=== PATIENT | female | born 1970 | race Asian ===

== ENCOUNTER → 2019-04-23 | Outpatient (CLI) | payer OTHER ==
[~2019-04-23] MED LIST: IRON PO; PRAVASTATIN SOD20 MG PO; VIREAD300 MG PO
--- NOTE | 2019-04-23 12:13 | Diagnostic Imaging Report ---
EXAM: Right upper quadrant abdominal ultrasound INDICATION: Personal history of hepatitis B, abdominal pain COMPARISON: None. TECHNIQUE: Transverse and longitudinal images of the right upper quadrant abdomen were obtained FINDINGS: Liver: Size: 11.6 cm in the right midclavicular line, normal Appearance: Increased echogenicity, smooth contour Mass: No focal masses Gallbladder: No gallbladder distension, pericholecystic fluid, wall thickening, stone, or reported sonographic Triplett's sign. Gallbladder wall measures 0.2 cm. Bile Ducts: Intrahepatic Ducts: No dilatation Extrahepatic Ducts: Common bile duct measures 0.2cm, no dilatation Pancreas: Visualized portions of the pancreatic head, neck and proximal body are normal. Kidney: The right kidney measures 9.3 cm without evidence of hydronephrosis or stone. Vessels: Aorta: Visualized portions are normal Inferior Vena Cava: Visualized portions are normal Main Portal Vein: 1.0 cm, normal size with hepatopetal flow. Free Fluid: No ascites or pleural effusion IMPRESSION: Hepatic steatosis. No focal liver mass. Signed by: Bairon Sanchez MD on 04/23/2019 12:09 PM
== END ==
LOC: US 08:14
PROVIDERS: ATTEND Internal Medicine Gastroenterology
DX: Z86.19 Personal history of other infectious and parasitic diseases (principal)
CPT/HCPCS: 76705

== ENCOUNTER → 2019-05-28 | Day surgery (SDC) | payer OTHER ==
[2019-05-24 11:35] LABS: BASOPHILS % 0.2 % (0.0-1.0); EOSINOPHILS # (AUTO) 0.7 (0.0-0.4); EOSINOPHILS % 7.9 % (0.0-6.0); HEMATOCRIT 40.1 % (34.2-44.1); HEMOGLOBIN 12.8 g/dL (12.0-16.0); LYMPHOCYTES # (AUTO) 2.1 (1.0-3.2); MEAN CORPUSCULAR HEMOGLOBIN 29.2 pg (28-32); MEAN CORPUSCULAR HGB CONC 31.9 g/dL (31-35); MEAN CORPUSCULAR VOLUME 91.3 fL (81-99); MONOCYTES # (AUTO) 0.8 (0.2-0.8); MONOCYTES % 8.7 % (4.4-11.3); NEUTROPHILS # (AUTO) 5.2 (2.1-6.9); PLATELET COUNT 228 x10e3/uL (140-360); RED BLOOD COUNT 4.39 x10e6/uL (3.6-5.1); RED CELL DISTRIBUTION WIDTH 19.5 % (11.7-14.4)
[2019-05-24 11:45] LABS: INR 0.85; PROTHROMBIN TIME 12.1 seconds (11.9-14.5)
[2019-05-24 11:46] LABS: PARTIAL THROMBOPLASTIN TIME 31.5 seconds (23.8-35.5)
[2019-05-24 11:56] LABS: ALANINE AMINOTRANSFERASE 25 IU/L (0-55); ALBUMIN/GLOBULIN RATIO 1.3 (0.8-2.0); ALKALINE PHOSPHATASE 79 IU/L (40-150); ANION GAP 11.7 mmol/L (8-16); BLOOD UREA NITROGEN 13 mg/dL (7-26); BUN/CREATININE RATIO 22 (6-25); CALCIUM 9.4 mg/dL (8.4-10.2); CARBON DIOXIDE 27 mmol/L (22-29); CHLORIDE 102 mmol/L (98-107); CREATININE, SERUM 0.58 mg/dL (0.57-1.11); EST GLOMERULAR FILTRATION RATE > 60 ML/MIN (60-); GLUCOSE 86 mg/dL (74-118); POTASSIUM 4.7 mmol/L (3.5-5.1); SODIUM 136 mmol/L (136-145)
[~2019-05-28] MED LIST changes: +FENTANYL CITRATE/PF 100MCG/2 ML INJ ONE; +GLUCAGON FOR INJ 1 MG VIAL ONE; +MIDAZOLAM HCL 2 MG/2 ML VIAL ONE; +PROPOFOL IV EMULSION 10 MG/ML 50 ML VIAL ONE
--- OUTSIDE RECORDS SUMMARY | 2019-05-28 05:52 | XMS REPORT | Continuity of Care Document ---
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 [facility] Urinary frequency Active Diagnosis 04/07/2017 Gireese Dianajeovanny Pedro Vitamin D deficiency Active Diagnosis 03/19/2019 Melisa Pedro Body mass index (BMI) of 21.0 to 21.9 in adult Active Diagnosis 03/19/2019 Gireese Goodmanang Dermatitis Active Diagnosis 04/07/2017 Gireese Goodmanang Osteoarthritis of ankle and foot Active Problem 03/19/2019 Gireese Goodmanang Pure hypercholesterolemia Active Diagnosis 03/19/2019 Gireese Pedro Chronic hepatitis B Active Diagnosis 03/19/2019 Gireese Pedro Anemia due to chronic blood loss Active Diagnosis 03/19/2019 Melisa Pedro TMJ arthritis Active Diagnosis 03/24/2017 Gireese Pedro Gingivitis Active Problem 03/19/2019 Gireese Pedro BMI 20.0-20.9, adult Active Diagnosis 11/12/2017 Gireese Pedro Allergic dermatitis Active Diagnosis 04/13/2018 Gireese Pedro Breast cancer screening Active Diagnosis 07/15/2018 Melisa Pedro Cervical cancer screening Active Diagnosis 09/16/2018 Melisa Pedro Encounter for general adult medical examination with abnormal findings Active Diagnosis 05/19/2018 Melisa Pedro Acute cystitis without hematuria Active Diagnosis 01/31/2019 Melisa Pedro BMI 21.0-21.9, adult Active Diagnosis 01/31/2019 Melisa Pedro Body mass index (BMI) 21.0-21.9, adult Active Diagnosis 04/13/2018 Melisa Pedro Hand pain, right Active Diagnosis 04/13/2018 Melisa Pedro Acne vulgaris Active Diagnosis 04/13/2018 Melisa Pedro Urinary tract infection without hematuria, site unspecified Active Diagnosis 04/01/2018 Melisa Pedro Muscle spasm Active Diagnosis 03/19/2019 Melisa Pedro Infected finger Active Diagnosis 11/12/2017 Melisa Pedro Hand numbness Active Diagnosis 04/13/2018 Melisa Pedro Cough in adult Active Diagnosis 09/16/2018 Melisa Pedro Hepatitis B Active Problem 09/03/2015 Melisa Pdero Encounter for general adult medical examination without abnormal findings Active Diagnosis 05/19/2016 Melisa Pedro UTI (urinary tract infection) Active Diagnosis 08/25/2015 Melisa Pedro Body mass index (BMI) of 20.0-20.9 in adult Active Diagnosis 08/25/2015 Melisa Pedro Influenza Active Diagnosis 08/25/2015 Melisa Pedro Brain tumor Active Diagnosis 12/31/2016 Melisa Pedro Lung nodule Active Problem 03/19/2019 Melisa Pedro Multiple idiopathic cysts of lung Active Diagnosis 03/19/2019 Melisa Pedro Headache (finding) Resolved Problem 03/28/2019 [facility] Pituitary mass (disorder) Resolved Problem 03/28/2019 [facility] Medications Medication Details Route Status Patient Instructions Ordering Provider Order Date Source Ferrous Sulfate 1 tablet Orally Active 325 (65 Fe) MG Orally Once a day KIDD 03/15/2019 Melisa Pedro Omnipaque 300 injectable solution 100 mL, Route: IVP, Drug Form: SOLN, Dosing Weight 53.636, kg, ONCALL, GFR > 45 mL/min, STAT, Start date: 03/12/19 0:40:00 CDT, Duration: 1 doses or timesNotes: (Same as:Omnipaque 300). WASTE: F/P - Black; E - [facility] Inactive 03/12/2019 [facility] NS (Bolus) IV 1,000 mL, 1,000 ml/hr, Infuse Over: 1 hr, Route: IV, 1,000, Drug form: INJ, ONCE, Priority: STAT, Dosing Weight 53.636 kg, Start date: 03/12/19 0:09:00 CDT, Stop date: 03/12/19 0:09:00 CDT Inactive 03/12/2019 [facility] Saline Flush 0.9% 10 mL, Route: IVP, Drug Form: INJ, Dosing Weight 53.636, kg, PRN, PRN Line Flush, Start date: 03/11/19 21:33:00 CDT, Duration: 30 day, Stop date: 04/10/19 21:32:00 CDTNotes: Same as: BD Posiflush Sterile No Longer Active 03/12/2019 [facility] Tylenol Extra Strength 1 tablet as needed Orally Active 500 MG Orally every 6 hrs KIDD 02/07/2019 [facility] Methocarbamol 1 tablet Orally Active 500 MG Orally every 8 hrs [facility] 02/07/2019 [facility] Zithromax Z-Jean-Paul 2 tablets on the first day, then 1 tablet daily for 4 days Orally Active 250 MG Orally Once a day [facility] 09/13/2018 [facility] Amoxicillin 1 capsule Orally Active 500 MG Orally Three times a day [facility] 09/13/2018 [facility] Duraflu 1 tablet as needed Orally Active 42-62-491-500 MG Orally Four times a day [facility] 09/13/2018 [facility] Nitrofurantoin Monohyd Macro 1 capsule with food Orally Active 100 mg Orally every 12 hrs [facility] 07/12/2018 [facility] Betamethasone Dipropionate 1 application to affected area Externally Active 0.05 Externally Twice a day [facility] 04/14/2018 [facility] Baraclude 1 tablet on an empty stomach Orally Active 0.5 MG Orally Once a day [facility] 04/10/2018 [facility] Voltaren 2 G apply to affected area Externally Active 1 % Externally Four times a day [facility] 03/30/2018 Melisa [facility] Diclofenac Sodium 1 tablet with food or milk Orally Active 100 MG Orally once a day [facility] 03/30/2018 Gireese Diana Pedro Bactrim DS 1 tablet Orally Active 800-160 MG Orally Twice a day [facility] 03/30/2018 Gireese Diana Pedro Celebrex 1 capsule Orally Active 200 MG Orally Once a day [facility] 03/30/2018 [facility] Bactrim DS 1 tablet Orally Active 800-160 MG Orally Twice a day [facility] 01/25/2018 Melisa [facility] Clindamycin HCl 1 capsule Orally Active 300 MG Orally Three times a day [facility] 11/10/2017 Melisa [facility] Celebrex 1 capsule Orally Active 200 MG Orally Once a day [facility] 10/16/2017 Melisa [facility] Bactrim DS 1 tablet Orally Active 800-160 MG Orally Twice a day [facility] 08/19/2017 [facility] K[facility] 1 capsule Orally Active 250 MG Orally once a day [facility] 08/19/2017 Melisa [facility] PredniSONE 2 tabs with food daily for 3 days and 1 tab daily for 4 days Orally Active 10 MG Orally Once a day [facility] 07/14/2017 Melisa [facility] Clobetasol Propionate 1 application to affected area Externally Active 0.05 % Externally Twice a day [facility] 05/22/2017 Melisa [facility] Betamethasone Dipropionate 1 application to affected area Externally Active 0.05 Externally Twice a day [facility] 05/22/2017 Melisa [facility] Amoxicillin 1 capsule Orally Active 500 MG Orally every 12 hrs [facility] 04/03/2017 Melisa [facility] Clobetasol Propionate 1 application to affected area Externally Active 0.05 % Externally Twice a day [facility] 03/18/2017 Melisa [facility] Naproxen 1 tablet Orally Active 500 MG Orally Twice a day [facility] 03/18/2017 Melisa [facility] Clobetasol Propionate 1 application to affected area Externally Active 0.05 % Externally Twice a day [facility] 12/26/2016 Melisa [facility] SulfaCleanse 8/4 apply to affected area Externally Active 8-4 % Externally Twice a day [facility] 08/10/2016 Giao Diana Pedro Tazorac 1 application to affected area in the evening Externally Active 0.05 % Externally Once a day [facility] 08/10/2016 Giao Diana Pedro SulfaCleanse 8/ apply to affected area Externally Active 8-4 % Externally Twice a day [facility] 08/10/2016 Giao Diana Pedro Ferralet 90 1 tablet Orally Active 90-1 MG Orally Once a day [facility] 05/04/2016 Giao Diana Pedro Zithromax Z-Jean-Paul 2 tablets on the first day, then 1 tablet daily for 4 days Orally Active 250 MG Orally Once a day [facility] 05/04/2016 Giao Diana Pedro Tamiflu 1 capsule Orally Active 75 MG Orally Twice a day [facility] 08/21/2015 Giao Daina Pedro Duraflu 1 tablet as needed Orally Active 99-07-220-500 MG Orally Four times a day [facility] 08/21/2015 Gi Diana Pedro Bactrim DS 1 tablet Orally Active 800-160 MG Orally Twice a day [facility] 08/21/2015 Gi Diana Pedro Zithromax Z-Jean-Paul 2 tablets on the first day, then 1 tablet daily for 4 days Orally Active 250 MG Orally Once a day [facility] 08/21/2015 Gi Diana Pedro Celebrex 1 capsule Orally Active 200 MG Orally Once a day [facility] 03/17/2015 Gi Diana Pedro Pravastatin Sodium 1 tablet Orally Active 20MG Orally Once a day [facility] Gi Diana Pedro Tazorac apply topically to affected area in the evening NA Active 0.05% [facility] Diana Pedro SulfaCleanse 05/05 apply to affected area Externally Active 8-4% Externally Twice a day [facility] Gi Diana Pedro Viread 1 tablet Orally Active 300 MG Orally Once a day [facility] Gi Diana Pedro Ferralet 90 1 tablet Orally Active 90-1 MG Orally Once a day [facility] Ida Diana Pedro Clobetasol Propionate 1 application to affected area Externally Active 0.05 % Externally Twice a day [facility] Giao Diana Pedro Viread 1 tablet Orally Active 300MG Orally Once a day [facility] Diana Pedro Betamethasone Dipropionate 1 application to affected area Externally Active 0.05 Externally Twice a day BERNABE Pedro Ferralet 90 1 tablet Orally Active 90-1 MG Orally Once a day BERNABE Ortiz Pedro Viread 1 tablet Orally Active 300 MG Orally Once a day BERNABE Pedor Voltaren 2 G apply to affected area Externally Active 1 % Externally Four times a day BERNABE Pedro SulfaCleanse 8/4 apply to affected area Externally Active 8-4 % Externally Twice a day BERNABE Ortiz Pedro Diclofenac Sodium 1 tablet with food or milk Orally Active 100 MG Orally once a day BERNABE Ortiz Pedro Pravastatin Sodium TAKE ONE TABLET BY MOUTH ONCE DAILY NA Active 20MG BERNABE Pedro Celebrex 1 capsule Orally Active 200 MG Orally Once a day BERNABE Ortiz Pedro PredniSONE 2 tabs with food daily for 3 days and 1 tab daily for 4 days Orally Active 10 MG Orally Once a day BERNABE Ortiz Pedro Celecoxib TAKE ONE CAPSULE BY MOUTH ONCE DAILY NA Active 200MG BERNABE Ortiz Pedro Viread 1 tablet Orally Active 300MG Orally Once a day BERNABE Ortiz Pedro Diclofenac Sodium 1 tablet with food or milk Orally Active 100 MG Orally once a day BERNABE Ortiz Pedro Pravastatin Sodium 1 tablet Orally Active 20 MG Orally Once a day BERNABE Ortiz Pedro Duraflu take one tablet by mouth as needed 4 times daily for 15 days NA Active 39-24-344-500 MG BERNABE Ortiz Pedro Methocarbamol 1 tablet Orally Active 500 MG Orally every 8 hrs BERNABE Ortiz Pedro Tylenol Extra Strength 1 tablet as needed Orally Active 500 MG Orally every 6 hrs BERNABE Vincent Diana Pedro Allergies, Adverse Reactions, Alerts Substance Category Reaction Severity Reaction type Status Date Reported Comments Source N.K.D.A. Adverse Reaction Info Not Available Adverse Reaction Active 08/21/2015 Melisa Pedro Bactrim DS Adverse Reaction Info Not Available Adverse Reaction Active 03/15/2019 Melisa Ortiz Pedro No Known Medication Allergies Assertion Drug allergy [facility] Immunizations No Data Provided for This Section Results Order Name Results Value Reference Range Date Interpretation Comments Source ENDOCRINOLOGY S Preg Negative *NA* (03/12/19 12:00 AM) Negative 03/12/2019 [facility] CARDIAC ENZYMES Total CK 152 12 - 191 03/12/2019 [facility] CARDIAC ENZYMES BNP 17 <=100 pg/mL 03/12/2019 [facility] CARDIAC ENZYMES Troponin-I <0.02 0.00 - 0.40 03/12/2019 [facility] CHEM PANEL BUN 17 7 - 22 03/12/2019 [facility] CHEM [facility] Creatinine Lvl 0.70 0.50 - 1.40 03/12/2019 [facility] CHEM PANEL Glucose Lvl 106 70 - 99 03/12/2019 [facility] CHEM PANEL CO2 24 24 - 32 03/12/2019 [facility] CHEM PANEL Chloride Lvl 104 95 - 109 03/12/2019 [facility] CHEM PANEL Sodium Lvl 137 135 - 145 03/12/2019 [facility] CHEM PANEL Potassium Lvl 3.7 3.5 - 5.1 03/12/2019 [facility] CHEM PANEL Albumin Lvl 3.9 3.5 - 5.0 03/12/2019 [facility] CHEM PANEL AST 16 0 - 37 03/12/2019 [facility] CHEM PANEL ALT 28 0 - 65 03/12/2019 [facility] CHEM PANEL Alk Phos 101 39 - 136 03/12/2019 [facility] CHEM PANEL Bili Total 0.3 0.2 - 1.3 03/12/2019 [facility] CHEM PANEL Calcium Lvl 8.5 8.5 - 10.5 03/12/2019 [facility] CHEM [facility] Total Protein 8.3 6.4 - 8.4 03/12/2019 [facility] CHEM PANEL eGFR 102 03/12/2019 Result Comment: The eGFR is calculated using the CKD-EPI formula. In most young, healthy individuals the eGFR will be >90 mL/min/1.73m2. The eGFR declines with age. An eGFR of 60-89 may be normal in some populations, particularly the elderly, for whom the CKD-EPI formula has not been extensively validated. Use of the eGFR is not recommended in the following populations:

Individuals with unstable creatinine concentrations, including patients and those with serious co-morbid conditions.

Patients with extremes in muscle mass or diet.

The data above are obtained from the National Kidney Disease Education Program (NKDEP) which additionally recommends that when the eGFR is used in patients with extremes of body mass index for purposes of drug dosing, the eGFR should be multiplied by the estimated BMI. [facility] CHEM PANEL A/G Ratio 0.9 0.7 - 1.6 03/12/2019 [facility] CHEM PANEL AGAP 12.7 10.0 - 20.0 03/12/2019 [facility] CHEM PANEL Globulin 4.4 2.7 - 4.2 03/12/2019 [facility] CHEM PANEL B/C Ratio 24 6 - 25 03/12/2019 [facility] CHEM PANEL Phosphorus 2.7 2.5 - 4.5 03/12/2019 [facility] CHEM PANEL Magnesium Lvl 2.4 1.8 - 2.4 03/12/2019 [facility] Platelet 349 133 - 450 03/12/2019 [facility] MPV 8.2 7.4 - 10.4 03/12/2019 [facility] RDW 17.6 11.5 - 14.5 03/12/2019 [facility] MCH 23.1 27.0 - 31.0 03/12/2019 [facility] MCHC 31.2 32.0 - 36.0 03/12/2019 [facility] MCV 74.0 80.0 - 98.0 03/12/2019 [facility] Hgb 9.4 12.0 - 16.0 03/12/2019 [facility] Hct 30.3 36.0 - 48.0 03/12/2019 [facility] RBC 4.09 4.20 - 5.40 03/12/2019 [facility] WBC 10.7 3.7 - 10.4 03/12/2019 [facility] Basophils # 0.0 0.0 - 0.2 03/12/2019 [facility] Eosinophils # 0.3 0.0 - 0.5 03/12/2019 [facility] Lymphocytes # 1.0 1.0 - 5.5 03/12/2019 [facility] Neutrophils # 8.8 1.5 - 8.1 03/12/2019 [facility] Monocytes # 0.6 0.0 - 0.8 03/12/2019 [facility] Basophils 0.2 0.0 - 1.0 03/12/2019 [facility] Monocytes 5.3 2.0 - 12.0 03/12/2019 [facility] Lymphocytes 9.1 20.0 - 40.0 03/12/2019 [facility] Eosinophils 3.0 0.0 - 4.0 03/12/2019 [facility] HEMATOLOGY Segs 82.4 45.0 - 75.0 03/12/2019 [facility] HEMATOLOGY D-Dimer 0.27 03/12/2019 [facility] URINE AND STOOL UA Leuk Est Negative (03/11/19 10:12 PM) Negative 03/12/2019 [facility] URINE AND STOOL UA WBC 3 0 - 5 03/12/2019 [facility] URINE AND STOOL UA RBC 1 0 - 2 03/12/2019 [facility] URINE AND STOOL UA Nitrite Positive *ABN* (03/11/19 10:12 PM) Negative 03/12/2019 [facility] URINE AND STOOL UA Sq Epi None Seen 03/12/2019 [facility] URINE AND STOOL UA Color Luz 03/12/2019 [facility] URINE AND STOOL UA Bacteria Occasional /HPF None Seen /HPF 03/12/2019 [facility] URINE AND STOOL UA pH 8.0 5.0 - 8.0 03/12/2019 [facility] URINE AND STOOL UA Spec Grav 1.009 <=1.030 03/12/2019 [facility] URINE AND STOOL UA Protein Negative mg/dL Negative mg/dL 03/12/2019 [facility] URINE AND STOOL UA Glucose Negative mg/dL Negative mg/dL 03/12/2019 [facility] URINE AND STOOL UA Ketones Negative mg/dL Negative mg/dL 03/12/2019 [facility] URINE AND STOOL UA Bili Negative *NA* (03/11/19 10:12 PM) Negative 03/12/2019 [facility] URINE AND STOOL UA Blood Small *ABN* (03/11/19 10:12 PM) Negative 03/12/2019 [facility] URINE AND STOOL UA Urobilinogen 4.0 0.1 - 1.0 03/12/2019 [facility] URINE AND STOOL UA Turbidity Clear (03/11/19 10:12 PM) Clear 03/12/2019 [facility] Pathology Reports No Data Provided for This Section Diagnostic Reports Report Value Date Source Chest Pulmonary Embolism CTA EXAM: CT CHEST WITH CONTRAST, PULMONARY EMBOLISM PROTOCOL DATE: 03/12/2019 0:12 CDT INDICATION: Difficulty breathing. COMPARISON: None. TECHNIQUE: Helical CT angiography of the chest was performed from the lung bases through the thoracic inlet following the administration of intravenous contrast. Axial, coronal, and sagittal multiplanar reconstructions are provided for review. MIP (Maximum Intensity Projection) images of the pulmonary arteries were also generated. IV contrast: 73 cc Omnipaque. Dose: WQD=302 mGy-cm FINDINGS: PULMONARY ARTERIES: No central or segmental pulmonary emboli are identified. The main pulmonary artery trunk as well as the left and right main pulmonary arteries are not enlarged. SYSTEMIC VESSELS: The thoracic aorta is normal in caliber without dissection or aneurysm. The great vessels appear unremarkable. There is a pocket of air within the left internal jugular vein, likely iatrogenic in origin. HEART: The cardiac chambers are unremarkable. There is no pericardial effusion. LUNGS AND PLEURA: No interstitial or alveolar airspace opacities are identified. A 9 mm pulmonary nodule is noted along the left major fissure on series 5 image 87. Pulmonary cysts are noted within the right upper lobe and left lower lobe. No pleural effusions or pneumothorax. AIRWAY: The central airway is normal. MEDIASTINUM: No significant mediastinal lymphadenopathy. VISUALIZED UPPER ABDOMEN: Multiple small left renal exophytic cysts. OSSEOUS STRUCTURES: No acute osseous abnormality. SOFT TISSUE: Unremarkable. IMPRESSION: 1. No evidence for pulmonary embolism. 2. Incidental 9 mm pulmonary nodule along the left major fissure. Follow-up per Fleischner criteria. 3. Few pulmonary cysts within the right upper and left lower lobes. 4. Pocket of air within the left internal jugular vein, likely iatrogenic in origin related to contrast injection. SL: [id number] 03/12/2019 [facility] Chest 2 views DX Clinical Indication: - dyspnea. Comparison: None. TECHNIQUE: PA and lateral chest radiographs were performed. (2 views) FINDINGS: The cardiac silhouette is normal in size. The pulmonary vasculature is normal in caliber. The aorta is unremarkable. There is no focal airspace consolidation, pleural effusion, or pneumothorax. There is no acute osseous abnormality. IMPRESSION: 1. No acute cardiopulmonary disease. 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 FINDINGS: LIVER: The liver is heterogeneous in echotexture and diffusely echogenic reflecting mild fatty infiltration. This lowers the sensitivity for detection of hepatic lesion. BILE DUCTS: The intrahepatic duct is not dilated. The common bile duct measuring 3.2 mm. GALLBLADDER: There are no gallstones, gallbladder sludge, pericholecystic fluid or wall thickening. PANCREAS: The visualized pancreas appears unremarkable.. SPLEEN: The spleen is unremarkable and measures 10.4 cm x 4.0 cm x 4.0 cm. KIDNEY: The right kidney measures 9.5 cm x 4.1 similar by 4.9 cm. The left kidney measures 11.1 cm x 4.7 cm x 6.1 cm. Small 5.0 mm lateral superior pole left renal cyst is present. There is normal renal contour and morphology, with normal parenchymal echotexture. There is no hydronephrosis. AORTA AND INFERIOR VENA CAVA: Visualized portions appear unremarkable. ASCITES: There is no right abdominal ascites. IMPRESSION: 1. No definite gallstones. 2. Hepatocellular disease likely reflecting diffuse fatty infiltration. SL: [id number] 08/19/2016 ABUNDIO [facility] Consultation Notes No Data Provided for This Section Discharge Summaries No Data Provided for This Section History and Physicals No Data Provided for This Section Vital Signs Vital Sign Value Date Comments Source BMI Calculated 21.44 03/26/2019 [facility] Weight 53.182 03/26/2019 [facility] Height 157.48 cm 03/26/2019 [facility] Weight 116 03/15/2019 [facility] Height 62 03/15/2019 [facility] Heart Rate 87 03/15/2019 [facility] Diastolic (mm Hg) 72 03/15/2019 [facility] Systolic (mm Hg) 131 03/15/2019 [facility] Systolic (mm Hg) 125 03/12/2019 [facility] Diastolic (mm Hg) 80 03/12/2019 [facility] Temperature Oral (F) 98.7 F 03/12/2019 [facility] Heart Rate 90 03/12/2019 [facility] Respitory Rate 20 03/12/2019 [facility] Systolic (mm Hg) 123 03/12/2019 [facility] Diastolic (mm Hg) 84 03/12/2019 [facility] Respitory Rate 20 03/12/2019 [facility] Heart Rate 92 03/12/2019 [facility] Systolic (mm Hg) 125 03/12/2019 [facility] Diastolic (mm Hg) 83 03/12/2019 [facility] Heart Rate 93 03/12/2019 [facility] Respitory Rate 20 03/12/2019 [facility] Temperature Oral (F) 99.3 F 03/12/2019 [facility] Weight 53.636 03/12/2019 [facility] BMI Calculated 23.09 03/12/2019 [facility] Height 152.4 cm 03/12/2019 [facility] Temperature Oral (F) 99.8 F 03/12/2019 [facility] Weight 116 02/07/2019 G[facility] Diana Pedro Height 62 02/07/2019 [facility] Heart Rate 70 02/07/2019 [facility] Diastolic (mm Hg) 66 02/07/2019 G[facility] Diana Pedro Systolic (mm Hg) 117 02/07/2019 [facility] Weight 117.4 01/28/2019 [facility] Diana Pedro Height 62 01/28/2019 G[facility] Diana [facility] Heart Rate 77 01/28/2019 G[facility] Diana Pedro Diastolic (mm Hg) 71 01/28/2019 G[facility] Diana Pedro Systolic (mm Hg) 124 01/28/2019 G[facility] Diana Pedro Weight 117.8 09/13/2018 G[facility] Diana Pedro Height 62 09/13/2018 Giao Diana Pedro Temperature Oral (F) 98.6 F 09/13/2018 G[facility] Diana Pedro Heart Rate 108 09/13/2018 G[facility] Diana Pedro Diastolic (mm Hg) 73 09/13/2018 G[facility] Diana Pedro Systolic (mm Hg) 110 09/13/2018 G[facility] Diana Pedro Weight 118 07/12/2018 [facility] Diana Pedro Height 62 07/12/2018 [facility] Heart Rate 80 07/12/2018 G[facility] Diana Pedro Diastolic (mm Hg) 78 07/12/2018 G[facility] Diana Pedro Systolic (mm Hg) 134 07/12/2018 [facility] Weight 119 05/18/2018 [facility] Height 62 05/18/2018 [facility] Heart Rate 71 05/18/2018 [facility] Diana Pedro Diastolic (mm Hg) 66 05/18/2018 [facility] Diana Pedro Systolic (mm Hg) 113 05/18/2018 [facility] Weight 120 04/10/2018 [facility] Height 62 04/10/2018 [facility] Heart Rate 83 04/10/2018 [facility] Diana Pedro Diastolic (mm Hg) 74 04/10/2018 Giao Diana Pedro Systolic (mm Hg) 122 04/10/2018 Giao Diana Pedro Weight 119.6 03/30/2018 Giao Diana Pedro Height 62 03/30/2018 Giao Diana Pedro Heart Rate 70 03/30/2018 Giao Diana Pedro Diastolic (mm Hg) 67 03/30/2018 Giao Diana Pedro Systolic (mm Hg) 117 03/30/2018 Giao Diana Pedro Weight 117.4 01/25/2018 Giao Diana Pedro Height 62 01/25/2018 Giao Diana Pedro Heart Rate 75 01/25/2018 Giao Diana Pedro Diastolic (mm Hg) 66 01/25/2018 Giao Diana Pedro Systolic (mm Hg) 121 01/25/2018 Giao Diana Pedro Weight 112.6 11/10/2017 Giao Diana Pedro Height 62 11/10/2017 Giao Diana Pedro Heart Rate 77 11/10/2017 Giao Diana Pedro Diastolic (mm Hg) 68 11/10/2017 Giao Diana Pedro Systolic (mm Hg) 112 11/10/2017 Giao Diana Pedro Weight 114 10/16/2017 Giao Diana Pedro Height 62 10/16/2017 Giao Diana Pedro Heart Rate 80 10/16/2017 Giao Diana Pedro Diastolic (mm Hg) 62 10/16/2017 Giao Diana Pedro Systolic (mm Hg) 113 10/16/2017 Giao Diana Pedro Weight 113 08/19/2017 Giao Diana Pedro Height 62 08/19/2017 Giao Diana Pedro Heart Rate 70 08/19/2017 Giao Diana Pedro Diastolic (mm Hg) 59 08/19/2017 Giao Diana Pedro Systolic (mm Hg) 113 08/19/2017 Giao Diana Pedro Weight 111 07/14/2017 Giao Diana Pedro Height 62 07/14/2017 Giao Diana Pedro Heart Rate 81 07/14/2017 Giao Diana Pedro Diastolic (mm Hg) 74 07/14/2017 Giao Diana Pedro Systolic (mm Hg) 121 07/14/2017 Giao Diana Pedro Weight 117 05/22/2017 Giao Diana Pedro Height 62 05/22/2017 Giao Diana Pedro Heart Rate 76 05/22/2017 Giao Diana Pedro Diastolic (mm Hg) 63 05/22/2017 Giao Diana Pedro Systolic (mm Hg) 96 05/22/2017 Giao Diana Pedro Weight 116 04/03/2017 Giao Diana Pedro Height 62 04/03/2017 Giao Diana Pedro Heart Rate 77 04/03/2017 Giao Diana Pedro Diastolic (mm Hg) 63 04/03/2017 Giao Diana Pedro Systolic (mm Hg) 112 04/03/2017 Giao Diana Pedro Weight 116 03/18/2017 Giao Diana Pedro Height 62 03/18/2017 Giao Diana Pedro Heart Rate 68 03/18/2017 Giao Diana Pedro Diastolic (mm Hg) 69 03/18/2017 Giao Diana Pedro Systolic (mm Hg) 108 03/18/2017 Giao Diana Pedro Weight 119 12/26/2016 Giao Diana Pedro Height 62 12/26/2016 Giao Idana Pedro Heart Rate 76 12/26/2016 Giao Diana Pedro Diastolic (mm Hg) 74 12/26/2016 Giao Diana Pedro Systolic (mm Hg) 124 12/26/2016 Giao Diana Pedro Weight 118 08/10/2016 Giao Diana Pedro Height 62 08/10/2016 Giao Diana Pedro Heart Rate 69 08/10/2016 Giao Diana Pedro Diastolic (mm Hg) 73 08/10/2016 Giao Diana Pedro Systolic (mm Hg) 122 08/10/2016 Giao Diana Pedro Weight 119 07/05/2016 Giao Diana Pedro Height 62 07/05/2016 Giao Diana Pedro Heart Rate 66 07/05/2016 Giao Diana Pedro Diastolic (mm Hg) 61 07/05/2016 Giao Diana Pedro Systolic (mm Hg) 114 07/05/2016 Giao Diana Pedro Weight 118 05/04/2016 Giao Diana Pedro Height 62 05/04/2016 Giao Diana Pedro Heart Rate 77 05/04/2016 Giao Diana Pdero Diastolic (mm Hg) 68 05/04/2016 Giao Diana Pedro Systolic (mm Hg) 109 05/04/2016 Melisa Pedro Weight 114 08/21/2015 Melisa Pedro Height 62 08/21/2015 Melisa Pedro Heart Rate 83 08/21/2015 Melisa Pedro Diastolic (mm Hg) 64 08/21/2015 Melisa Pedro Systolic (mm Hg) 120 08/21/2015 Melisa Pedro Encounters Location Location Details Encounter Type Encounter Number Reason For Visit Attending Provider ADM Date DC Date Status Source [facility] Outpatient Imaging [facility] Outpatient [id number] [facility] Mario 04/10/2014 04/11/2014 RITAD [facility] Imaging [place] [facility] [id number] Calin Moreno 05/01/2014 05/02/2014 ABUNDIO Pedro MD PA Follow- Up [id number] 11/10/2014 11/10/2014 Melisa Pedro MD PA Follow- Up [id number] 11/10/2014 11/10/2014 Melisa Pedro MD PA Follow- Up [id number] 11/10/2014 11/10/2014 Melisa Pedro MD PA Follow- Up [id number] 11/10/2014 11/10/2014 Melisa Pedro MD PA Follow- Up [id number] 11/10/2014 11/10/2014 Melisa Pedro MD PA Follow- Up [id number] 11/10/2014 11/10/2014 Melisa Pedro MD PA Follow- Up [id number] 11/10/2014 11/10/2014 Melisa Pedro MD PA Follow- Up [id number] 11/10/2014 11/10/2014 Melisa Pedro MD PA Follow- Up [id number] 11/10/2014 11/10/2014 Melisa Pedro MD PA Follow- Up [id number] 03/17/2015 03/17/2015 Melisa Pedro MD PA Follow- Up [id number] 03/17/2015 03/17/2015 Melisa Pedro MD PA Follow- Up [id number] 03/17/2015 03/17/2015 Melisa Pedro MD PA Follow- Up [id number] 03/17/2015 03/17/2015 Melisa Pedro MD PA Follow- Up [id number] 03/17/2015 03/17/2015 Melisa Pedro MD PA Follow- Up [id number] 03/17/2015 03/17/2015 Melisa Pedro MD PA Follow- Up [id number] 03/17/2015 03/17/2015 Melisa Pedro MD PA Follow- Up [id number] 03/17/2015 03/17/2015 Melisa Pedro MD PA Follow- Up [id number] 03/17/2015 03/17/2015 Melisa Pedro MD PA Follow- Up [id number] 05/11/2015 05/11/2015 Melisa Pedro MD PA Follow- Up [id number] 05/11/2015 05/11/2015 Melisa Pedro MD PA Follow- Up [id number] 05/11/2015 05/11/2015 Melisa Pedro MD PA Follow- Up [id number] 05/11/2015 05/11/2015 Melisa Pedro MD PA Follow- Up [id number] 05/11/2015 05/11/2015 Melisa Pedro MD PA Follow- Up [id number] 05/11/2015 05/11/2015 Melisa Pedro MD PA Follow- Up [id number] 05/11/2015 05/11/2015 Melisa Pedro MD PA Follow- Up [id number] 05/11/2015 05/11/2015 Melisa Pedro MD PA Follow- Up [id number] 05/11/2015 05/11/2015 Melisa Pedro MD PA Mammogram [id number] 06/17/2015 06/17/2015 Melisa Pedro MD PA Mammogram [id number] 06/17/2015 06/17/2015 Melisa Pedro MD PA Mammogram [id number] 06/17/2015 06/17/2015 Melisa Pedro MD PA Mammogram [id number] 06/17/2015 06/17/2015 Melisa Pedro MD PA Mammogram [id number] 06/17/2015 06/17/2015 Melisa Pedro MD PA Mammogram [id number] 06/17/2015 06/17/2015 Melisa Pedro MD PA Mammogram [id number] 06/17/2015 06/17/2015 Melisa Pedro MD PA Mammogram [id number] 06/17/2015 06/17/2015 Melisa Pedro MD PA Mammogram [id number] 06/17/2015 06/17/2015 Melisa Pedro MD PA Follow- Up [id number] 08/21/2015 08/21/2015 Melisa Pedro MD PA Follow- Up [id number] 08/21/2015 08/21/2015 Melisa Pedro MD PA Follow- Up [id number] 08/21/2015 08/21/2015 Melisa Pedro MD PA Follow- Up [id number] 08/21/2015 08/21/2015 Melisa Pedro MD PA Follow- Up [id number] 08/21/2015 08/21/2015 Melisa Pedro MD PA Follow- Up [id number] 08/21/2015 08/21/2015 Melisa Pedro MD PA Follow- Up [id number] 08/21/2015 08/21/2015 Melisa Pedro MD PA Follow- Up [id number] 08/21/2015 08/21/2015 Melisa Pedro MD PA Drug Reaction [id number] 09/01/2015 09/01/2015 Melisa Pedro MD PA Drug Reaction [id number] 09/01/2015 09/01/2015 Melisa Pedro MD PA Drug Reaction [id number] 09/01/2015 09/01/2015 Melisa Pedro MD PA Drug Reaction [id number] 09/01/2015 09/01/2015 Melisa Pedro MD PA Drug Reaction [id number] 09/01/2015 09/01/2015 Melisa Pedro MD PA Drug Reaction [id number] 09/01/2015 09/01/2015 Melisa Pedro MD PA Drug Reaction [id number] 09/01/2015 09/01/2015 Melisa Pedro MD PA Urine Culture [id number] 09/01/2015 09/01/2015 Melisa Pedro MD PA Urine Culture [id number] 09/01/2015 09/01/2015 Melisa Pedro MD PA Urine Culture [id number] 09/01/2015 09/01/2015 Melisa Pedro MD PA Urine Culture [id number] 09/01/2015 09/01/2015 Melisa Pedro MD PA Urine Culture [id number] 09/01/2015 09/01/2015 Melisa Pedro MD PA Urine Culture [id number] 09/01/2015 09/01/2015 Melisa Pedro MD PA Urine Culture [id number] 09/01/2015 09/01/2015 Melisa Pedro MD PA Follow- Up [id number] 05/04/2016 05/04/2016 Melisa Pedro MD PA Follow- Up [id number] 05/04/2016 05/04/2016 Melisa Pedro MD PA Follow- Up [id number] 05/04/2016 05/04/2016 Melisa Pedro MD PA Follow- Up [id number] 05/04/2016 05/04/2016 Melisa Pedro MD PA Follow- Up [id number] 05/04/2016 05/04/2016 Melisa Pedro MD PA Mammogram Result [id number] 06/20/2016 06/20/2016 Melisa Pedro MD PA Mammogram Result [id number] 06/20/2016 06/20/2016 Melisa Pedro MD PA Mammogram Result [id number] 06/20/2016 06/20/2016 Melisa Pedro MD PA Mammogram Result [id number] 06/20/2016 06/20/2016 Melisa Pedro MD PA Follow- Up [id number] 07/05/2016 07/05/2016 Melisa Pedro MD PA Follow- Up [id number] 07/05/2016 07/05/2016 Melisa Pedro MD PA Follow- Up [id number] 07/05/2016 07/05/2016 Melisa Pedro MD PA Follow- Up [id number] 08/10/2016 08/10/2016 Melisa Pedro MD PA Follow- Up [id number] 08/10/2016 08/10/2016 Melisa Pedro [facility] Outpatient Imaging [facility] [id number] Óscar Morillo 08/19/2016 08/20/2016 OPID [facility] Melisa Pedro MD PA MRI Result [id number] 08/30/2016 08/30/2016 Melisa Pedro Outpatient [id number] CALIN MORENO 09/06/2016 Active [facility] Emergency [id number] Leonardo Baxter 03/12/2019 03/12/2019 [facility] Outpatient [id number] Geovany Vinson 03/26/2019 03/27/2019 [facility] Procedures No Data Provided for This Section Assessment and Plan No Data Provided for This Section Plan of Care No Data Provided for This Section Social History Social History Date Source Social History TypeResponse Smoking Status Previous treatment: None; Ready to change: No; Concerns about tobacco use in household: No; Exposure to Tobacco Smoke None; Cigarette Smoking Last 365 Days No; Reg Smoking Cessation Counseling No; Never smoker entered on: 03/11/19 03/12/2019 [facility] No data available for this section 08/20/2016 OPID [facility] Social History ElementQualifiersDate Reported drug use . no Aug 10, 2016 Tobacco Use: . Are you a: nonsmoker Aug 10, 2016 Pets: . NO Aug 10, 2016 Marital Status: . Aug 10, 2016 Caffeine: . NO Aug 10, 2016 Alcohol: . no Aug 10, 2016 08/10/2016 Melisa Pedro Family History Value Date Source QualifierDescriptionCommentDate Reported Maternal Grandmother Comment not available Aug 10, 2016 Paternal Grandmother Comment not available Aug 10, 2016 Siblings Comment not available Aug 10, 2016 Maternal Grandfather Comment not available Aug 10, 2016 Children Comment not available Aug 10, 2016 Father Comment not available Aug 10, 2016 Paternal Grandfather Comment not available Aug 10, 2016 Mother alive Comment not available Aug 10, 2016 Other: Comment not available Aug 10, 2016 08/14/2016 Melisa Pedro QualifierDescriptionCommentDate Reported Maternal Grandmother Comment not available Jul 05, 2016 Paternal Grandmother Comment not available Jul 05, 2016 Siblings Comment not available Jul 05, 2016 Maternal Grandfather Comment not available Jul 05, 2016 Children Comment not available Jul 05, 2016 Father Comment not available Jul 05, 2016 Paternal Grandfather Comment not available Jul 05, 2016 Mother alive Comment not available Jul 05, 2016 Other: Comment not available Jul 05, 2016 07/13/2016 Melisa Pedro QualifierDescriptionCommentDate Reported Maternal Grandmother Comment not available May 04, 2016 Paternal Grandmother Comment not available May 04, 2016 Siblings Comment not available May 04, 2016 Maternal Grandfather Comment not available May 04, 2016 Children Comment not available May 04, 2016 Father Comment not available May 04, 2016 Paternal Grandfather Comment not available May 04, 2016 Mother alive Comment not available May 04, 2016 Other: Comment not available May 04, 2016 05/19/2016 Melisa Pedro Advance Directives No Data Provided for This Section Functional Status No Data Provided for This Section
--- OUTSIDE RECORDS SUMMARY | 2019-05-28 05:52 | XMS REPORT ---
Author Author Melisa Pedro Organization [employer] Address Unknown Phone Unavailable Care Team Providers Care Director Of Content And Programming Name Role Phone Melisa Pedro CP Unavailable Allergies, Adverse Reactions, Alerts Substance Reaction Event Type Bactrim DS Info Not Available Drug Allergy Problems Problem Type Condition Code Onset Dates Condition Status Assessment Body mass index (BMI) of 21.0 to 21.9 in adult Z68.21 Active Assessment Anemia due to chronic blood loss D50.0 Active Assessment Vitamin D deficiency E55.9 Active Assessment Dermatitis L30.9 Active Assessment Urinary frequency R35.0 Active Problem Chronic hepatitis B B18.1 Active Problem 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 Problem Gingivitis K05.10 Active Assessment Chronic hepatitis B B18.1 Active Assessment Pure hypercholesterolemia E78.0 Active Problem Pure hypercholesterolemia E78.0 Active Assessment Gingivitis K05.10 Active Medications Medication Code System Code Instructions Start Date End Date Status Dosage Ferralet 90 [facility] [address]-86 90-1 MG Orally Once a day Active 1 tablet Tazorac [facility] 85122648818 0.05 % Externally Once a day Active 1 application to affected area in the evening Clobetasol Propionate [facility] [address]-82 0.05 % Externally Twice a day Active 1 application to affected area Pravastatin Sodium [facility] 22643631300 20MG Orally Once a day Active 1 tablet Naproxen [facility] [address]-80 500 MG Orally Twice a day March 18, 2017 May 17, 2017 Active 1 tablet Viread [facility] [address]-37 300 MG Orally Once a day Active 1 tablet Viread [facility] 15365640186 300MG Active TAKE ONE TABLET BY MOUTH ONCE DAILY SulfaCleanse 8/4 [facility] 54859789951 8-4% Externally Twice a day Active apply to affected area Amoxicillin [facility] [address]-20 500 MG Orally every 12 hrs April 03, 2017 April 13, 2017 Active 1 capsule Vital Signs Date/Time: April 03, 2017 BMI 21.21 Index Weight 116 lbs Height 62 in Cardiac Monitoring Heart Rate 77 /min Blood Pressure Diastolic 63 mm Hg Blood Pressure Systolic 112 mm Hg Results No Known Results Summary Purpose [employer] Submission
--- OUTSIDE RECORDS SUMMARY | 2019-05-28 05:52 | XMS REPORT ---
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
--- OUTSIDE RECORDS SUMMARY | 2019-05-28 05:52 | XMS REPORT ---
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 Problem Pure hypercholesterolemia E78.0 Active Problem Chronic hepatitis B B18.1 Active Assessment Pure hypercholesterolemia E78.0 Active Assessment Anemia due to chronic blood loss D50.0 Active Assessment Brain tumor D49.6 Active Assessment Chronic hepatitis B B18.1 Active Medications Medication Code System Code Instructions Start Date End Date Status Dosage SulfaCleanse 8/4 [facility] 21647937755 8-4% Externally Twice a day Active apply to affected area Ferralet 90 [facility] [address]-98 90-1 MG Orally Once a day Active 1 tablet Clobetasol Propionate [facility] [address]-68 0.05 % Externally Twice a day December 26, 2016 February 24, 2017 Active 1 application to affected area Pravastatin Sodium [facility] 22988101012 20MG Orally Once a day Active 1 tablet Tazorac [facility] 62122886241 0.05 % Externally Once a day Active 1 application to affected area in the evening Duraflu [facility] [address]-28 06-45-512-500 MG Active take one tablet by mouth as needed 4 times daily for 15 days Viread [facility] [address]-40 300 MG Orally Once a day Active 1 tablet Vital Signs Date/Time: December 26, 2016 BMI 21.76 Index Weight 119 lbs Height 62 in Cardiac Monitoring Heart Rate 76 /min Blood Pressure Diastolic 74 mm Hg Blood Pressure Systolic 124 mm Hg Results Name Result Date Reference Range Unit Abnormality Flag 1502 URINALYSIS W/REFLEX MICRO Summary Purpose [employer] Submission
--- OUTSIDE RECORDS SUMMARY | 2019-05-28 05:52 | XMS REPORT ---
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 03649041688 20MG Orally Once a day Active [address] [facility] 32249895087 0.05 % Externally Once a day Active 1 application to affected area in the evening SulfaCleanse 8/[address] [facility] 16519818767 8-4% Externally Twice a day Active apply to affected area Clobetasol Propionate [facility] [address]-93 0.05 % Externally Twice a day March 18, 2017 May 17, 2017 Active 1 application to affected area Naproxen [facility] [address]-24 500 MG Orally Twice a day March 18, 2017 May 17, 2017 Active [address] [facility] [address]-06 300 MG Orally Once a day Active 1 tablet Ferralet [address] [facility] [address]-53 90-1 MG Orally Once a day Active 1 tablet Vital Signs Date/Time: March 18, 2017 BMI 21.21 Index Weight 116 lbs Height 62 in Cardiac Monitoring Heart Rate 68 /min Blood Pressure Diastolic 69 mm Hg Blood Pressure Systolic 108 mm Hg Results No Known Results Summary Purpose [employer] Submission
--- OUTSIDE RECORDS SUMMARY | 2019-05-28 05:52 | XMS REPORT ---
Author Author REINA KIDD Organization [employer] Address Unknown Phone Unavailable Care Team Providers Care High School Music Instructor Name Role Phone REINA KIDD CP Unavailable Allergies, Adverse Reactions, Alerts Substance Reaction Event Type Bactrim DS Info Not Available Drug Allergy Problems Problem Type Condition Code Onset Dates Condition Status Assessment Vitamin D deficiency E55.9 Active Assessment Breast cancer screening Z12.39 Active Assessment Anemia due to chronic blood loss D50.0 Active Assessment Body mass index (BMI) of 21.0 to 21.9 in adult Z68.21 Active Assessment Cervical cancer screening Z12.4 Active Problem Chronic hepatitis B B18.1 Active Problem 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 Problem Gingivitis K05.10 Active Assessment Encounter for general adult medical examination with abnormal findings Z00.01 Active Assessment Pure hypercholesterolemia E78.0 Active Problem Pure hypercholesterolemia E78.0 Active Assessment Chronic hepatitis B B18.1 Active Medications Medication Code System Code Instructions Start Date End Date Status Dosage Viread [facility] [address]-76 300 MG Orally Once a day Active 1 tablet Pravastatin Sodium [facility] 57099257838 20MG Orally Once a day Active 1 tablet SulfaCleanse 8/4 [facility] 23950502642 8-4% Externally Twice a day Active apply to affected area Tazorac [facility] 46855856646 0.05 % Externally Once a day Active 1 application to affected area in the evening Clobetasol Propionate [facility] [address]-35 0.05 % Externally Twice a day May 22, 2017 Inactive 1 application to affected area Betamethasone Dipropionate [facility] [address]-12 0.05 Externally Twice a day May 22, 2017 Jul 21, 2017 Active 1 application to affected area Ferralet 90 [facility] [address]-51 90-1 MG Orally Once a day Active 1 tablet Viread [facility] 00926846384 300MG Active TAKE ONE TABLET BY MOUTH ONCE DAILY Vital Signs Date/Time: May 22, 2017 BMI 21.40 Index Weight 117 lbs Height 62 in Cardiac Monitoring Heart Rate 76 /min Blood Pressure Diastolic 63 mm Hg Blood Pressure Systolic 96 mm Hg Results Name Result Date Reference Range Unit Abnormality Flag CBC (H/H, RBC, INDICES, WBC, PLT) ----PLATELET COUNT 254 20170522 140-400 Thousand/uL N ----RDW 10.7 20170522 11.0-15.0 % L ----MCHC 33.4 20170522 32.0-36.0 g/dL N ----MCH 32.2 20170522 27.0-33.0 pg N ----MCV 96.2 20170522 80.0-100.0 fL N ----WHITE BLOOD CELL COUNT 8.8 20170522 3.8-10.8 Thousand/uL N ----MPV 10.7 20170522 7.5-12.5 fL N ----RED BLOOD CELL COUNT 4.26 20170522 3.80-5.10 Million/uL N ----HEMOGLOBIN 13.7 20170522 11.7-15.5 g/dL N ----HEMATOCRIT 41.0 20170522 35.0-45.0 % N Summary Purpose [employer] Submission
--- OUTSIDE RECORDS SUMMARY | 2019-05-28 05:52 | XMS REPORT ---
Author Author REINA KIDD Organization [employer] Address Unknown Phone Unavailable Care Team Providers Care Barking Machine Feeder Name Role Phone REINA KIDD CP Unavailable Allergies, Adverse Reactions, Alerts Substance Reaction Event Type Bactrim DS Info Not Available Drug Allergy Problems Problem Type Condition Code Onset Dates Condition Status Assessment BMI 20.0-20.9, adult Z68.20 Active Assessment Anemia due to chronic blood loss D50.0 Active Assessment Vitamin D deficiency E55.9 Active Problem Chronic hepatitis B B18.1 Active Problem Pure hypercholesterolemia E78.0 Active Problem Gingivitis K05.10 Active Assessment Chronic hepatitis B B18.1 Active Assessment Pure hypercholesterolemia E78.0 Active Problem 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 Assessment Allergic dermatitis L23.9 Active Medications Medication Code System Code Instructions Start Date End Date Status Dosage Tazorac [facility] 19359600309 0.05% Externally Once a day Active 1 application to affected area in the evening Betamethasone Dipropionate [facility] [address]-33 0.05 Externally Twice a day Active 1 application to affected area Viread [facility] 96950476101 300MG Active TAKE ONE TABLET BY MOUTH ONCE DAILY Pravastatin Sodium [facility] 97474382252 20MG Orally Once a day Active 1 tablet SulfaCleanse 8/4 [facility] 28493699699 8-4% Externally Twice a day Active apply to affected area PredniSONE [facility] 69434118398 10 MG Orally Once a day Jul 14, 2017 Jul 21, 2017 Active 2 tabs with food daily for 3 days and 1 tab daily for 4 days Ferralet 90 [facility] 44593229300 90-1 MG Orally Once a day Active 1 tablet Viread [facility] 44268785133 300 MG Orally Once a day Active 1 tablet Vital Signs Date/Time: Jul 14, 2017 BMI 20.30 Index Weight 111 lbs Height 62 in Cardiac Monitoring Heart Rate 81 /min Blood Pressure Diastolic 74 mm Hg Blood Pressure Systolic 121 mm Hg Results No Known Results Summary Purpose eClinicalWorks Submission
--- OUTSIDE RECORDS SUMMARY | 2019-05-28 05:53 | XMS REPORT ---
Author Author REINA KIDD Organization [employer] Address Unknown Phone Unavailable Care Team Providers Care Silk Presser Name Role Phone REINA KIDD CP Unavailable Encounters Encounter Location Date Mammogram [place] Jun 17, 2015 [place]Up [facility] [place] Aug 21, 2015 Urine Culture [facility] Sep 01, 2015 Drug Reaction [facility] Sep 01, 2015 Follow-Up [facility] Nov 10, 2014 Follow-Up [facility] March 17, 2015 Follow-Up [facility] May 11, 2015 Follow-Up [facility] May 04, 2016 Problems Problem Type Condition ICD-9 Code Onset Dates Condition Status Assessment Anemia due to chronic blood loss D50.0 Active Assessment Pure hypercholesterolemia E78.0 Active Assessment Cervical cancer screening Z12.4 Active Assessment Body mass index (BMI) of 21.0 to 21.9 in adult Z68.21 Active Assessment Vitamin D deficiency E55.9 Active Problem 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 Problem Pure hypercholesterolemia E78.0 Active Problem Chronic hepatitis B B18.1 Active Assessment 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 Assessment Breast cancer screening Z12.39 Active Assessment Chronic hepatitis B B18.1 Active Assessment Encounter for general adult medical examination without abnormal findings Z00.00 Active Medications Medication Code System Code Instructions Start Date End Date Status Dosage Ferralet 90 [facility] [address]-39 90-1 MG Orally Once a day May 04, 2016 Active 1 tablet Viread [facility] [address]-76 300 MG Orally Once a day Active 1 tablet Duraflu [facility] [address]-26 67-49-512-500 MG Active take one tablet by mouth as needed 4 times daily for 15 days Zithromax Z-[facility] [address]-05 250 MG Orally Once a day May 04, 2016 May 09, 2016 Active 2 tablets on the first day, then 1 tablet daily for 4 days [facility]iflu [facility] [address]-90 75 MG Orally Twice a day Aug 21, 2015 Active 1 capsule Pravastatin Sodium [facility] 07911448898 20MG Orally Once a day Active 1 tablet Social History Social History Element Qualifiers Date Reported drug use . no May 04, 2016 Tobacco Use: . Are you a: nonsmoker May 04, 2016 Pets: . NO May 04, 2016 Marital Status: . May 04, 2016 Caffeine: . NO May 04, 2016 Alcohol: . no May 04, 2016 Family history Qualifier Description Comment Date Reported Maternal Grandmother Comment not available May [...] Other: Comment not available May 04, 2016 Vital Signs Date/Time: May 04, 2016 Weight 118 lbs Height 62 in Cardiac Monitoring Heart Rate 77 /min Blood Pressure Diastolic 68 mm Hg Blood Pressure Systolic 109 mm Hg Results CBC (H/H, RBC, INDICES, WBC, PLT) Summary Purpose eClinicalWorks Submission
--- OUTSIDE RECORDS SUMMARY | 2019-05-28 05:53 | XMS REPORT ---
Author Author REINA KIDD Organization [employer] Address Unknown Phone Unavailable Care Team Providers Care Resource Protection Specialist Name Role Phone REINA KIDD CP Unavailable Encounters Encounter Location Date Mammogram [facility] [place] Jun 17, 2015 Follow-Up Melisa [facility] [place] Aug 21, 2015 Urine Culture [facility] [place] Sep 01, 2015 Drug Reaction [facility] [place] Sep 01, 2015 [facility]Up [facility] Nov 10, 2014 Follow-Up [facility] March 17, 2015 Follow-Up [facility] May 11, 2015 Follow-Up [facility] [place] May 04, 2016 Mammogram Result [facility] [place] Jun 20, 2016 Problems Problem Type Condition ICD-9 Code Onset Dates Condition Status Problem 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 no May 04, 2016 Tobacco Use: . Are you a: nonsmoker May 04, 2016 Pets: . NO May 04, 2016 Marital Status: . May 04, 2016 Caffeine: . NO May 04, 2016 Alcohol: . no May 04, 2016 Summary Purpose eClinicalWorks Submission
--- OUTSIDE RECORDS SUMMARY | 2019-05-28 05:53 | XMS REPORT ---
Author Author REINA KIDD Organization [employer] Address Unknown Phone Unavailable Care Team Providers Care Process Tech Name Role Phone REINA KIDD Unavailable Allergies, Adverse Reactions, Alerts Substance Reaction Event Type N.K.D.A. 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 Assessment Pure hypercholesterolemia E78.0 Active Assessment Influenza J11.1 Active Assessment Hepatitis B B19.10 Active Assessment 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 Medications Medication Code System Code Instructions Start Date End Date Status Dosage Tamiflu [facility] [address]-47 75 MG Orally Twice a day Aug 21, 2015 Active 1 capsule Bactrim DS [facility] [address]-79 800-160 MG Orally Twice a day Aug 21, 2015 Aug 26, 2015 Active 1 tablet Zithromax Z-Jean-Paul [facility] [address]-87 250 MG Orally Once a day Aug 21, 2015 Aug 26, 2015 Active 2 tablets on the first day, then 1 tablet daily for 4 days Celebrex [facility] [address]-59 200 MG Orally Once a day March 17, 2015 Sep 13, 2015 Active 1 capsule Pravastatin Sodium [facility] [address]-22 20 MG Orally Once a day Active 1 tablet Viread [facility] [address]-53 300 MG Orally Once a day Active 1 tablet Duraflu [facility] [address]-40 21-72-723-500 MG Orally Four times a day Aug 21, 2015 Sep 20, 2015 Active 1 tablet as needed Social History Social History Element Qualifiers Date Reported drug use . no Aug 21, 2015 Tobacco Use: . Are you a: nonsmoker Aug 21, 2015 Pets: . NO Aug 21, 2015 Marital Status: . Aug 21, 2015 Caffeine: . NO Aug 21, 2015 Alcohol: . no Aug 21, 2015 Vital Signs Date/Time: Aug 21, 2015 Weight 114 lbs Height 62 in Cardiac Monitoring Heart Rate 83 /min Blood Pressure Diastolic 64 mm Hg Blood Pressure Systolic 120 mm Hg Summary Purpose eClinicalWorks Submission
--- OUTSIDE RECORDS SUMMARY | 2019-05-28 05:53 | XMS REPORT ---
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 Assessment Anemia due to chronic blood loss D50.0 Active Assessment Vitamin D deficiency E55.9 Active Problem Chronic hepatitis B B18.1 Active Problem Pure hypercholesterolemia E78.0 Active Problem Gingivitis K05.10 Active Assessment Chronic hepatitis B B18.1 Active Assessment Pure hypercholesterolemia E78.0 Active Problem 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 Assessment Allergic dermatitis L23.9 Active Assessment Body mass index (BMI) 21.0-21.9, adult Z68.21 Active Assessment Hand pain, right M79.641 Active Assessment Acne vulgaris L70.0 Active Medications Medication Code System Code Instructions Start Date End Date Status Dosage Tazorac [facility] 27532222181 0.05% Active apply topically to affected area in the evening Bactrim DS [facility] 79187763699 800-160 MG Orally Twice a day January 25, 2018 February 04, 2018 Active 1 tablet SulfaCleanse 8/4 [facility] 31980342047 8-4 % Externally Twice a day Active apply to affected area Viread [facility] 54621824216 300 MG Orally Once a day Active 1 tablet Betamethasone Dipropionate [facility] [address]-42 0.05 Externally Twice a day Active 1 application to affected area Celebrex ND 96445609318 200 MG Orally Once a day Active 1 capsule Ferralet 90 [facility] 64901620057 90-1 MG Orally Once a day Active 1 tablet Pravastatin Sodium [facility] 59663031536 20MG Orally Once a day Active 1 tablet Vital Signs Date/Time: January 25, 2018 BMI 21.47 Index Weight 117.4 lbs Height 62 in Cardiac Monitoring Heart Rate 75 /min Blood Pressure Diastolic 66 mm Hg Blood Pressure Systolic 121 mm Hg Results No Known Results Summary Purpose eClinicalWorks Submission
--- OUTSIDE RECORDS SUMMARY | 2019-05-28 05:53 | XMS REPORT ---
Author Author REINA KIDD Organization [employer] Address Unknown Phone Unavailable Care Team Providers Care Ring Maker Name Role Phone REINA KIDD CP Unavailable Encounters Encounter Location Date Mammogram [facility] [place] Jun 17, 2015 Follow[place]Up [facility] [place] Aug 21, 2015 Urine Culture [facility] [place] Sep 01, 2015 Drug Reaction [facility] [place] Sep 01, 2015 Follow[place]Up [facility] [place] Nov 10, 2014 Follow[place]Up [facility] [place] March 17, 2015 Follow-Up [facility] [place] May 11, 2015 Problems Problem Type Condition ICD-9 Code Onset Dates Condition Status Problem Hepatitis B B19.10 Active Problem Pure hypercholesterolemia E78.0 Active Problem 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 no Sep 01, 2015 Tobacco Use: . Are you a: nonsmoker Sep 01, 2015 Pets: . NO Sep 01, 2015 Marital Status: . Sep 01, 2015 Caffeine: . NO Sep 01, 2015 Alcohol: . no Sep 01, 2015 Summary Purpose eClinicalWorks Submission
--- OUTSIDE RECORDS SUMMARY | 2019-05-28 05:53 | XMS REPORT ---
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
--- OUTSIDE RECORDS SUMMARY | 2019-05-28 05:53 | XMS REPORT ---
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 Assessment Chronic hepatitis B B18.1 Active Medications Medication Code System Code Instructions Start Date End Date Status Dosage Ferralet 90 [facility] 60069084484 90-1 MG Orally Once a day Inactive 1 tablet Viread [facility] 02934859064 300MG Orally Once a day Active 1 tablet SulfaCleanse 8/4 [facility] 24009686746 8-4 % Externally Twice a day Active apply to affected area Tazorac [facility] 59573865372 0.05% Active apply topically to affected area in the evening Baraclude [facility] 83856327259 0.5 MG Orally Once a day April 10, 2018 Oct 07, 2018 Active 1 tablet on an empty stomach Diclofenac Sodium [facility] 0 100 MG Orally once a day Active 1 tablet with food or milk Viread [facility] 09731845857 300 MG Orally Once a day Active 1 tablet Pravastatin Sodium [facility] 14381175948 20MG Orally Once a day Active 1 tablet Betamethasone Dipropionate [facility] [address]-83 0.05 Externally Twice a day Active 1 application to affected area Voltaren [facility] 68920122901 1 % Externally Four times a day Active 2 G apply to affected area Vital Signs Date/Time: May 18, 2018 BMI 21.76 Index Weight 119 lbs Height 62 in Cardiac Monitoring Heart Rate 71 /min Blood Pressure Diastolic 66 mm Hg Blood Pressure Systolic 113 mm Hg Results No Known Results Summary Purpose eClinicalWorks Submission
--- OUTSIDE RECORDS SUMMARY | 2019-05-28 05:53 | XMS REPORT ---
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
--- OUTSIDE RECORDS SUMMARY | 2019-05-28 05:53 | XMS REPORT ---
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
--- OUTSIDE RECORDS SUMMARY | 2019-05-28 05:53 | XMS REPORT ---
Author Author REINA KIDD Organization [employer] Address Unknown Phone Unavailable Care Team Providers Care Cook Cashier Food Prep Name Role Phone REINA KIDD Unavailable Allergies, Adverse Reactions, Alerts Substance Reaction Event Type Bactrim DS Info Not Available Drug Allergy Problems Problem Type Condition Code Onset Dates Condition Status Assessment Anemia due to chronic blood loss D50.0 Active Assessment Chronic hepatitis B B18.1 Active Assessment Pure hypercholesterolemia E78.0 Active Problem Gingivitis K05.10 Active Problem Chronic hepatitis B B18.1 Active Problem Lung nodule R91.1 Active Assessment Lung nodule R91.1 Active Problem Pure hypercholesterolemia E78.0 Active Problem 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 28062774292 325 (65 Fe) MG Orally Once a day March 15, 2019 Active [address] [facility] 89998870640 500 MG Orally every 8 hrs Active [address] [facility] [address]-90 100 MG Orally once a day Active 1 tablet with food or milk Viread [facility] 74905005462 300MG Orally Once a day Active 1 tablet Tylenol Extra Strength ND 96825851079 500 MG Orally every 6 hrs Active 1 tablet as needed Pravastatin Sodium [facility] 53407734668 20MG Orally Once a day Active [address] [facility] 65751307917 1 % Externally Four times a day Active 2 G apply to affected area Betamethasone Dipropionate [facility] [address]-38 0.05 Externally Twice a day Active 1 application to affected area Ferralet [address] [facility] 34065620330 90-1 MG Orally Once a day Active [address] [facility] 59924030189 300 MG Orally Once a day Active 1 tablet Vital Signs Date/Time: March 15, 2019 BMI 21.21 Index Weight 116 lbs Height 62 in Cardiac Monitoring Heart Rate 87 /min Blood Pressure Diastolic 72 mm Hg Blood Pressure Systolic 131 mm Hg Results No Known Results Summary Purpose eClinicalWorks Submission
--- OUTSIDE RECORDS SUMMARY | 2019-05-28 05:53 | XMS REPORT ---
Author Author REINA KIDD Organization eClinicalWorks Address Unknown Phone Unavailable Care Team Providers Care Sequins Stringer Name Role Phone REINA KIDD Unavailable Allergies, Adverse Reactions, Alerts Substance Reaction Event Type Bactrim DS Info Not Available Drug Allergy Problems Problem Type Condition Code Onset Dates Condition Status Assessment Vitamin D deficiency E55.9 Active Assessment Allergic dermatitis L23.9 Active Assessment Anemia due to chronic blood loss D50.0 Active Problem Chronic hepatitis B B18.1 Active Problem Pure hypercholesterolemia E78.0 Active Problem Gingivitis K05.10 Active Assessment Chronic hepatitis B B18.1 Active Assessment Pure hypercholesterolemia E78.0 Active Problem 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 Assessment Hand numbness R20.0 Active Assessment Body mass index (BMI) 21.0-21.9, adult Z68.21 Active Assessment Hand pain, right M79.641 Active Assessment Acne vulgaris L70.0 Active Assessment 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 Medications Medication Code System Code Instructions Start Date End Date Status Dosage SulfaCleanse 8/4 [facility] 62696272227 8-4 % Externally Twice a day Active apply to affected area Baraclude ND 38428024933 0.5 MG Orally Once a day April 10, 2018 Oct 07, 2018 Active 1 tablet on an empty stomach Voltaren ND 65778686832 1 % Externally Four times a day Active 2 G apply to affected area Tazorac [facility] 98477898513 0.05% Active apply topically to affected area in the evening Betamethasone Dipropionate [facility] [address]-04 0.05 Externally Twice a day Active 1 application to affected area Diclofenac Sodium ND 0 100 MG Orally once a day Active 1 tablet with food or milk Viread ND 03400581636 300 MG Orally Once a day Active 1 tablet Pravastatin Sodium ND 53244339458 20MG Orally Once a day Active 1 tablet Ferralet 90 ND 70518720476 90-1 MG Orally Once a day Active 1 tablet Vital Signs Date/Time: April 10, 2018 BMI 21.95 Index Weight 120 lbs Height 62 in Cardiac Monitoring Heart Rate 83 /min Blood Pressure Diastolic 74 mm Hg Blood Pressure Systolic 122 mm Hg Results No Known Results Summary Purpose eClinicalWorks Submission
--- OUTSIDE RECORDS SUMMARY | 2019-05-28 05:53 | XMS REPORT ---
Author Author REINA KIDD Organization e[employer] Address Unknown Phone Unavailable Care Team Providers Care Financial Cost Analyst Name Role Phone REINA KIDD Unavailable Allergies, Adverse Reactions, Alerts Substance Reaction Event Type Bactrim DS Info Not Available Drug Allergy Problems Problem Type Condition Code Onset Dates Condition Status Assessment Vitamin D deficiency E55.9 Active Assessment Pure hypercholesterolemia E78.0 Active Assessment Anemia due to chronic blood loss D50.0 Active Assessment BMI 20.0-20.9, adult Z68.20 Active Problem Chronic hepatitis B B18.1 Active Problem Pure hypercholesterolemia E78.0 Active Problem Gingivitis K05.10 Active Assessment Allergic dermatitis L23.9 Active Assessment Chronic hepatitis B B18.1 Active Problem 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 Assessment Urinary tract infection without hematuria, site unspecified N39.0 Active Medications Medication Code System Code Instructions Start Date End Date Status Dosage Tazorac [facility] 24332789888 0.05% Externally Once a day Active 1 application to affected area in the evening Viread [facility] 45493185140 300MG Active TAKE ONE TABLET BY MOUTH ONCE DAILY Betamethasone Dipropionate [facility] [address]-37 0.05 Externally Twice a day Active 1 application to affected area Ferralet 90 [facility] 54837002183 90-1 MG Orally Once a day Active 1 tablet SulfaCleanse 8/4 [facility] 49389242881 8-4% Externally Twice a day Active apply to affected area PredniSONE ND 67232131755 10 MG Orally Once a day Active 2 tabs with food daily for 3 days and 1 tab daily for 4 days Bactrim DS [facility] 95106443091 800-160 MG Orally Twice a day Aug 19, 2017 Aug 24, 2017 Active 1 tablet Keflex [facility] 42356222037 250 MG Orally once a day Aug 19, 2017 Oct 18, 2017 Active 1 capsule Pravastatin Sodium [facility] 22925935367 20MG Orally Once a day Active 1 tablet Viread [facility] 92041925039 300 MG Orally Once a day Active 1 tablet Vital Signs Date/Time: Aug 19, 2017 BMI 20.67 Index Weight 113 lbs Height 62 in Cardiac Monitoring Heart Rate 70 /min Blood Pressure Diastolic 59 mm Hg Blood Pressure Systolic 113 mm Hg Results No Known Results Summary Purpose eClinicalWorks Submission
--- OUTSIDE RECORDS SUMMARY | 2019-05-28 05:53 | XMS REPORT ---
Author Author REINA KIDD Organization e[employer] Address Unknown Phone Unavailable Care Team Providers Care Pipeline Gang Supervisor Name Role Phone REINA KIDD CP Unavailable Encounters Encounter Location Date Mammogram Melisa Pedro MD [place] Jun 17, 2015 Follow-Up Melisa Pedro MD [place] Nov 10, 2014 Follow-Up Melisa Pedro MD [place] March 17, 2015 Follow-Up Melisa Pedro [place] May 11, 2015 Social History Social History Element Qualifiers Date Reported drug use . no May 12, 2015 Tobacco Use: . Are you a: nonsmoker May 12, 2015 Pets: . NO May 12, 2015 Marital Status: . May 12, 2015 Caffeine: . NO May 12, 2015 Alcohol: . no May 12, 2015 Summary Purpose eClinicalWorks Submission
--- OUTSIDE RECORDS SUMMARY | 2019-05-28 05:53 | XMS REPORT ---
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
--- OUTSIDE RECORDS SUMMARY | 2019-05-28 05:53 | XMS REPORT ---
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
--- OUTSIDE RECORDS SUMMARY | 2019-05-28 05:53 | XMS REPORT ---
Author Author REINA KIDD Organization [employer] Address Unknown Phone Unavailable Care Team Providers Care Stone Planer Name Role Phone REINA KIDD Unavailable Allergies, Adverse Reactions, Alerts Substance Reaction Event Type Bactrim DS Info Not Available Drug Allergy Encounters Encounter Location Date Mammogram MD [facility] Jun 17, 2015 Follow-Up Melisa Pedro MD [place] Aug 21, 2015 Urine Culture MD [facility] Sep 01, 2015 Drug Reaction MD [facility] Sep 01, 2015 Follow-Up MD [facility] Nov 10, 2014 Follow-Up MD [facility] March 17, 2015 Follow-Up MD [facility] May 11, 2015 Follow-Up MD [facility] Jul 05, 2016 Follow-Up MD [facility] May 04, 2016 Mammogram Result Melisa Pedro MD [place] Jun 20, 2016 Problems Problem Type Condition ICD-9 Code Onset Dates Condition Status Assessment Urinary frequency R35.0 Active Assessment Anemia due to chronic blood loss D50.0 Active Assessment Vitamin D deficiency E55.9 Active Assessment Body mass index (BMI) of 21.0 to 21.9 in adult Z68.21 Active Problem 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 Problem Pure hypercholesterolemia E78.0 Active Problem Chronic hepatitis B B18.1 Active Assessment 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 Assessment Pure hypercholesterolemia E78.0 Active Assessment Brain tumor D49.6 Active Assessment Chronic hepatitis B B18.1 Active Medications Medication Code System Code Instructions Start Date End Date Status Dosage Tamiflu [facility] [address]-18 75 MG Orally Twice a day Aug 21, 2015 Active 1 capsule [facility]rav[facility] 50037695043 20MG Orally Once a day Active 1 tablet Ferralet 90 [facility] [address]-29 90-1 MG Orally Once a day Active 1 tablet Duraflu [facility] [address]-99 05-09-699-500 MG Active take one tablet by mouth as needed 4 times daily for 15 days Viread [facility] [address]-87 300 MG Orally Once a day Active 1 tablet Social History Social History Element Qualifiers Date Reported drug use . no Jul 05, 2016 Tobacco Use: . Are you a: nonsmoker Jul 05, 2016 Pets: . NO Jul 05, 2016 Marital Status: . Jul 05, 2016 Caffeine: . NO Jul 05, 2016 Alcohol: . no Jul 05, 2016 Family history Qualifier Description Comment Date Reported Maternal Grandmother Comment not available Jul [...] Other: Comment not available Jul 05, 2016 Vital Signs Date/Time: Jul 05, 2016 Weight 119 lbs Height 62 in Cardiac Monitoring Heart Rate 66 /min Blood Pressure Diastolic 61 mm Hg Blood Pressure Systolic 114 mm Hg Summary Purpose eClinicalWorks Submission
--- OUTSIDE RECORDS SUMMARY | 2019-05-28 05:53 | XMS REPORT ---
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 Medications Medication Code System Code Instructions Start Date End Date Status Dosage Celebrex [facility] [address]-90 200 MG Orally Once a day March 17, 2015 Sep 13, 2015 Active 1 capsule Pravastatin Sodium [facility] [address]-39 20 MG Orally Once a day Active 1 tablet Tamiflu [facility] [address]-05 75 MG Orally Twice a day Aug 21, 2015 Active 1 capsule Duraflu [facility] [address]-79 20-97-654-500 MG Orally Four times a day Aug 21, 2015 Sep 20, 2015 Active 1 tablet as needed Viread [facility] [address]-36 300 MG Orally Once a day Active [...]
--- OUTSIDE RECORDS SUMMARY | 2019-05-28 05:53 | XMS REPORT ---
Author Author REINA KIDD Organization [employer] Address Unknown Phone Unavailable Care Team Providers Care Child Welfare Consultant Name Role Phone REINA KIDD Unavailable Allergies, Adverse Reactions, Alerts Substance Reaction Event Type Bactrim DS Info Not Available Drug Allergy Problems Problem Type Condition Code Onset Dates Condition Status Assessment Cervical cancer screening Z12.4 Active Assessment Anemia due to chronic blood loss D50.0 Active Assessment Vitamin D deficiency E55.9 Active Assessment Cough in adult R05 Active Assessment Body mass index (BMI) of 21.0 to 21.9 in adult Z68.21 Active Problem Chronic hepatitis B B18.1 Active Problem Pure hypercholesterolemia E78.0 Active Problem Gingivitis K05.10 Active Assessment Pure hypercholesterolemia E78.0 Active Assessment Chronic hepatitis B B18.1 Active Problem 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 Medications Medication Code System Code Instructions Start Date End Date Status Dosage Tazorac [facility] 67902444064 0.05% Active apply topically to affected area in the evening Pravastatin Sodium [facility] 78184068697 20MG Orally Once a day Active 1 tablet Pravastatin Sodium [facility] 19886842471 20MG Active TAKE ONE TABLET BY MOUTH ONCE DAILY Zithromax Z-Jean-Paul ND 85536516322 250 MG Orally Once a day Sep 13, 2018 Sep 18, 2018 Active 2 tablets on the first day, then 1 tablet daily for 4 days SulfaCleanse 8/4 [facility] 02297034700 8-4 % Externally Twice a day Active apply to affected area Amoxicillin ND 53403954226 500 MG Orally Three times a day Sep 13, 2018 Sep 23, 2018 Active 1 capsule Duraflu [facility] 66134340407 43-27-448-500 MG Orally Four times a day Sep 13, 2018 Oct 13, 2018 Active 1 tablet as needed Baraclude [facility] 04699502084 0.5 MG Orally Once a day April 10, 2018 Oct 07, 2018 Active 1 tablet on an empty stomach Viread [facility] 52796544628 300MG Orally Once a day Active 1 tablet Voltaren [facility] 22866629097 1 % Externally Four times a day Active 2 G apply to affected area Viread [facility] 42966979641 300 MG Orally Once a day Active 1 tablet Betamethasone Dipropionate [facility] [address]-33 0.05 Externally Twice a day Active 1 application to affected area Ferralet 90 [facility] 42286247448 90-1 MG Orally Once a day Inactive 1 tablet Diclofenac Sodium [facility] [address]-90 100 MG Orally once a day Active 1 tablet with food or milk Vital Signs Date/Time: Sep 13, 2018 BMI 21.54 Index Weight 117.8 lbs Height 62 in Temperature 98.6 F Cardiac Monitoring Heart Rate 108 /min Blood Pressure Diastolic 73 mm Hg Blood Pressure Systolic 110 mm Hg Results No Known Results Summary Purpose eClinicalWorks Submission
--- OUTSIDE RECORDS SUMMARY | 2019-05-28 05:53 | XMS REPORT ---
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
--- OUTSIDE RECORDS SUMMARY | 2019-05-28 05:53 | XMS REPORT ---
Author Author REINA KIDD Organization [employer] Address Unknown Phone Unavailable Care Team Providers Care Software Systems Analyst Name Role Phone REINA KIDD Unavailable Allergies, Adverse Reactions, Alerts Substance Reaction Event Type Bactrim DS Info Not Available Drug Allergy Problems Problem Type Condition Code Onset Dates Condition Status Assessment Vitamin D deficiency E55.9 Active Assessment Chronic hepatitis B B18.1 Active Assessment Anemia due to chronic blood loss D50.0 Active Assessment Acute cystitis without hematuria N30.00 Active Assessment Body mass index (BMI) of 21.0 to 21.9 in adult Z68.21 Active Assessment Cervical cancer screening Z12.4 Active Problem Chronic hepatitis B B18.1 Active Problem Pure hypercholesterolemia E78.0 Active Problem Gingivitis K05.10 Active Assessment Pure hypercholesterolemia E78.0 Active Assessment Breast cancer screening Z12.39 Active Problem 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 Medications Medication Code System Code Instructions Start Date End Date Status Dosage Ferralet 90 [facility] 37471113492 90-1 MG Orally Once a day Inactive 1 tablet Betamethasone Dipropionate [facility] [address]-39 0.05 Externally Twice a day Active 1 application to affected area Baraclude [facility] 13823021916 0.5 MG Orally Once a day April 10, 2018 Oct 07, 2018 Active 1 tablet on an empty stomach Pravastatin Sodium [facility] 35642019991 20MG Active TAKE ONE TABLET BY MOUTH ONCE DAILY Viread [facility] 96275279979 300 MG Orally Once a day Active 1 tablet Tazorac [facility] 98082294367 0.05% Active apply topically to affected area in the evening SulfaCleanse 8/4 [facility] 01636246093 8-4 % Externally Twice a day Active apply to affected area Nitrofurantoin Monohyd Macro [facility] 96230230774 100 MG Orally every 12 hrs Jul 12, 2018 Jul 19, 2018 Active 1 capsule with food Viread [facility] 38882278812 300MG Orally Once a day Active 1 tablet Diclofenac Sodium [facility] [address]-30 100 MG Orally once a day Active 1 tablet with food or milk Pravastatin Sodium [facility] 80794742976 20MG Orally Once a day Active 1 tablet Voltaren [facility] 25112675918 1 % Externally Four times a day Active 2 G apply to affected area Vital Signs Date/Time: Jul 12, 2018 BMI 21.58 Index Weight 118 lbs Height 62 in Cardiac Monitoring Heart Rate 80 /min Blood Pressure Diastolic 78 mm Hg Blood Pressure Systolic 134 mm Hg Results No Known Results Summary Purpose eClinicalWorks Submission
--- OUTSIDE RECORDS SUMMARY | 2019-05-28 05:53 | XMS REPORT ---
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 Assessment Allergic dermatitis L23.9 Active Medications Medication Code System Code Instructions Start Date End Date Status Dosage Pravastatin Sodium [facility] 44885517783 20MG Orally Once a day Active 1 tablet Viread [facility] 39041210977 300 MG Orally Once a day Active 1 tablet Celecoxib ND 71944342937 200MG Active TAKE ONE CAPSULE BY MOUTH ONCE DAILY SulfaCleanse 8/4 [facility] 23502497856 8-4% Externally Twice a day Active apply to affected area Betamethasone Dipropionate [facility] [address]-74 0.05 Externally Twice a day April 14, 2018 Active 1 application to affected area Viread [facility] 38792621139 300MG Active TAKE ONE TABLET BY MOUTH ONCE DAILY Ferralet 90 [facility] 44942620296 90-1 MG Orally Once a day Active 1 tablet Keflex [facility] 87273774223 250 MG Orally once a day Aug 19, 2017 Oct 18, 2017 Active 1 capsule PredniSONE [facility] 89410342194 10 MG Orally Once a day Active 2 tabs with food daily for 3 days and 1 tab daily for 4 days Celebrex [facility] 69937579687 200 MG Orally Once a day Oct 16, 2017 April 14, 2018 Active 1 capsule Tazorac [facility] 07516186380 0.05% Active apply topically to affected area in the evening SulfaCleanse 05/05 [facility] 97898095587 8-4 % Externally Twice a day Aug 10, 2016 April 14, 2018 Active apply to affected area Vital Signs Date/Time: Oct 16, 2017 BMI 20.85 Index Weight 114 lbs Height 62 in Cardiac Monitoring Heart Rate 80 /min Blood Pressure Diastolic 62 mm Hg Blood Pressure Systolic 113 mm Hg Results No Known Results Summary Purpose eClinicalWorks Submission
--- OUTSIDE RECORDS SUMMARY | 2019-05-28 05:53 | XMS REPORT ---
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 Medications Medication Code System Code Instructions Start Date End Date Status Dosage Betamethasone Dipropionate [facility] [address]-21 0.05 Externally Twice a day Active 1 application to affected area Celebrex [facility] 66273767608 200 MG Orally Once a day Active 1 capsule Celecoxib [facility] 13850848993 200MG Active TAKE ONE CAPSULE BY MOUTH ONCE DAILY Pravastatin Sodium [facility] 05067363281 20MG Orally Once a day Active 1 tablet Ferralet 90 [facility] 54525064955 90-1 MG Orally Once a day Active 1 tablet SulfaCleanse 8/4 [facility] 06029448124 8-4 % Externally Twice a day Active apply to affected area Tazorac [facility] 72790545301 0.05% Active apply topically to affected area in the evening PredniSONE [facility] 29408810038 10 MG Orally Once a day Active 2 tabs with food daily for 3 days and 1 tab daily for 4 days Viread [facility] 21494533914 300MG Active TAKE ONE TABLET BY MOUTH ONCE DAILY Clindamycin HCl [facility] 57677868004 300 MG Orally Three times a day Nov 10, 2017 Nov 20, 2017 Active 1 capsule SulfaCleanse 05/05 [facility] 89832787916 8-4% Externally Twice a day Active apply to affected area Viread [facility] 43911161722 300 MG Orally Once a day Active 1 tablet Vital Signs Date/Time: Nov 10, 2017 BMI 20.59 Index Weight 112.6 lbs Height 62 in Cardiac Monitoring Heart Rate 77 /min Blood Pressure Diastolic 68 mm Hg Blood Pressure Systolic 112 mm Hg Results No Known Results Summary Purpose eClinicalWorks Submission
--- OUTSIDE RECORDS SUMMARY | 2019-05-28 05:53 | XMS REPORT ---
Author Author REINA KIDD Organization eClinicalWorks Address Unknown Phone Unavailable Care Team Providers Care Test Fixture Assembler Name Role Phone REINA KIDD Unavailable Allergies, Adverse Reactions, Alerts Substance Reaction Event Type Bactrim DS Info Not Available Drug Allergy Problems Problem Type Condition Code Onset Dates Condition Status Assessment Body mass index (BMI) of 21.0 to 21.9 in adult Z68.21 Active Assessment Vitamin D deficiency E55.9 Active Assessment Pure hypercholesterolemia E78.0 Active Assessment Muscle spasm M62.838 Active Problem Chronic hepatitis B B18.1 Active Problem Pure hypercholesterolemia E78.0 Active Problem Gingivitis K05.10 Active Assessment Anemia due to chronic blood loss D50.0 Active Assessment Chronic hepatitis B B18.1 Active Problem 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 Medications Medication Code System Code Instructions Start Date End Date Status Dosage Voltaren [facility] 15936337136 1 % Externally Four times a day Active 2 G apply to affected area Diclofenac Sodium [facility] [address]-50 100 MG Orally once a day Active 1 tablet with food or milk Tylenol Extra Strength ND 89389523788 500 MG Orally every 6 hrs February 07, 2019 Active 1 tablet as needed Ferralet 90 ND 18374546697 90-1 MG Orally Once a day Inactive 1 tablet Viread [facility] 98904567699 300 MG Orally Once a day Active 1 tablet Betamethasone Dipropionate [facility] [address]-64 0.05 Externally Twice a day Active 1 application to affected area Nitrofurantoin Monohyd Macro ND 05215872674 100 mg Orally every 12 hrs Jul 12, 2018 February 11, 2019 Active 1 capsule with food Viread [facility] 70794286749 300MG Orally Once a day Active 1 tablet Methocarbamol ND 64267018651 500 MG Orally every 8 hrs February 07, 2019 Active 1 tablet Pravastatin Sodium [facility] 17167271421 20MG Orally Once a day Active 1 tablet Vital Signs Date/Time: February 07, 2019 BMI 21.21 Index Weight 116 lbs Height 62 in Cardiac Monitoring Heart Rate 70 /min Blood Pressure Diastolic 66 mm Hg Blood Pressure Systolic 117 mm Hg Results No Known Results Summary Purpose eClinicalWorks Submission
--- OUTSIDE RECORDS SUMMARY | 2019-05-28 05:53 | XMS REPORT ---
Author Author REINA KIDD Organization eClinicalWorks Address Unknown Phone Unavailable Care Team Providers Care Blind Hooker Name Role Phone REINA KIDD CP Unavailable [...] Active Assessment Allergic dermatitis L23.9 Active Assessment Urinary tract infection without hematuria, site unspecified N39.0 Active Assessment Body mass index (BMI) 21.0-21.9, adult Z68.21 Active Assessment Hand pain, right M79.641 Active Assessment Acne vulgaris L70.0 Active Medications Medication Code System Code Instructions Start Date End Date Status Dosage Betamethasone Dipropionate [facility] [address]-45 0.05 Externally Twice a day Active 1 application to affected area Ferralet [address] [facility] 93924933780 90-1 MG Orally Once a day Active 1 tablet Voltaren [facility] 50102936198 1 % Externally Four times a day March 30, 2018 Jun 28, 2018 Active 2 G apply to affected area Pravastatin Sodium ND 51885735882 20MG Orally Once a day Active 1 tablet Viread ND 94076111253 300 MG Orally Once a day Active 1 tablet SulfaCleanse 8/4 ND 93499819758 8-4 % Externally Twice a day Active apply to affected area Diclofenac Sodium [facility] 0 100 MG Orally once a day March 30, 2018 Jun 28, 2018 Active 1 tablet with food or milk Bactrim DS [facility] 63339714416 800-160 MG Orally Twice a day March 30, 2018 April 04, 2018 Active 1 tablet Celebrex [facility] 22857655526 200 MG Orally Once a day March 30, 2018 Inactive 1 capsule Tazorac [facility] 68176880298 0.05% Active apply topically to affected area in the evening Vital Signs Date/Time: March 30, 2018 BMI 21.87 Index Weight 119.6 lbs Height 62 in Cardiac Monitoring Heart Rate 70 /min Blood Pressure Diastolic 67 mm Hg Blood Pressure Systolic 117 mm Hg Results Name Result Date Reference Range Unit Abnormality Flag 1501 URINALYSIS W/REFLEX MICRO Summary Purpose eClinicalWorks Submission
--- OUTSIDE RECORDS SUMMARY | 2019-05-28 05:53 | XMS REPORT ---
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 Medications Medication Code System Code Instructions Start Date End Date Status Dosage Tazorac [facility] 29061497981 0.05% Active apply topically to affected area in the evening Voltaren [facility] 17214193949 1 % Externally Four times a day Active 2 G apply to affected area SulfaCleanse 8/[address] [facility] 08040122460 8-4 % Externally Twice a day Active apply to affected area Betamethasone Dipropionate [facility] [address]-83 0.05 Externally Twice a day Active 1 application to affected area Pravastatin Sodium [facility] 77395717032 20MG Orally Once a day Active 1 tablet Diclofenac Sodium [facility] [address]-01 100 MG Orally once a day Active 1 tablet with food or milk Pravastatin Sodium [facility] 53748779873 20MG Active TAKE ONE TABLET BY MOUTH ONCE DAILY Viread [facility] 75122799059 300MG Orally Once a day Active 1 tablet Nitrofurantoin Monohyd Macro ND 77768842330 100 mg Orally every 12 hrs Jul 12, 2018 February 11, 2019 Active 1 capsule with food Vital Signs Date/Time: January 28, 2019 BMI 21.47 Index Weight 117.4 lbs Height 62 in Cardiac Monitoring Heart Rate 77 /min Blood Pressure Diastolic 71 mm Hg Blood Pressure Systolic 124 mm Hg Results No Known Results Summary Purpose eClinicalWorks Submission
--- OUTSIDE RECORDS SUMMARY | 2019-05-28 05:54 | XMS REPORT ---
[facility] Address Unknown Phone Unavailable Care Team Providers Care Cotton Tipper Name Role Phone SHORTY LUIS Unavailable Unavailable Problems This patient has no known problems. Allergies, Adverse Reactions, Alerts This patient has no known allergies or adverse reactions. Medications This patient has no known medications. Encounters Start Date/Time End Date/Time Encounter Type Admission Type Attending Clinicians Care Facility Care Department Encounter ID 2019-03-26 10:06:00 2019-03-26 10:06:00 Outpatient [facility] [id number] 2019-03-11 21:17:00 2019-03-11 21:17:00 Emergency E [facility] [id number] Results Test Description Test Time Test Comments Text Results Atomic Results Result Comments US LIVER 2019-04-23 12:08:00 [place] [address] Patient Name: MAXIME VASQUEZ MR #: [id number] : 1970 Age/Sex: 48/F Req #: [id number] Adm Physician: Ordered by: SHORTY LUIS MD Report #: [id number] Location: Room/Bed: Procedure: [id number] US/US LIVER Exam Date: 04/23/19 Exam Time: 0900 REPORT STATUS: Signed EXAM: Right upper quadrant abdominal ultrasound INDICATION: Personal history of hepatitis B, abdominal pain COMPARISON: None. TECHNIQUE: Transverse and longitudinal images of the right upper quadrant abdomen were obtained FINDINGS: Liver: Size: 11.6 cm in the right midclavicular line, normal Appearance: Increased echogenicity, smooth contour Mass: No focal masses Gallbladder: No gallbladder distension, pericholecystic fluid, wall thickening, stone, or reported sonographic Triplett's sign. Gallbladder wall measures 0.2 cm. Bile Ducts: Intrahepatic Ducts: No dilatation Extrahepatic Ducts: Common bile duct measures 0.2cm, no dilatation Pancreas: Visualized portions of the pancreatic head, neck and proximal body are normal. Kidney: The right kidney measures 9.3 cm without evidence of hydronephrosis or stone. Vessels: Aorta: Visualized portions are normal Inferior Vena Cava: Visualized portions are normal Main Portal Vein: 1.0 cm, normal size with hepatopetal flow. Free Fluid: No ascites or pleural effusion IMPRESSION: Hepatic steatosis. No focal liver mass. Signed by: Larry Zapata MD on 04/23/2019 12:09 PM Dictated By: LARRY ZAPATA MD 1209 Transcribed By: SUZY on 04/23/19 1209 COPY TO: SHORTY LUIS MD
--- OUTSIDE RECORDS SUMMARY | 2019-05-28 05:54 | XMS REPORT | Summary of Care ---
Author Organization Unknown Address Unknown Phone Unavailable Encounter HQ Sharonr_robertzonia(BERTHA) [id number] Date(s): 04/10/14 - 04/10/14 [facility] Outpatient Imaging [id number] [place] [address] Discharge Disposition: Home Physician Attending: Radha Martin MD Reason for Visit V76.12 - SCREEN MAMMOGRA Problem List No data available for this section Allergies, Adverse Reactions, Alerts No data available for this section Medications No data available for this section Medications Administered During Your Visit No data available for this section Immunizations No data available for this section
--- OUTSIDE RECORDS SUMMARY | 2019-05-28 05:54 | XMS REPORT | Summary of Care ---
Author Organization Unknown Address Unknown Phone Unavailable Encounter HQ Genevieventr_robertzonia(BERTHA) [id number] Date(s): 05/01/14 - 05/01/14 [facility] Outpatient Imaging [address] Discharge Disposition: Home Physician Attending: Calin Pena MD Reason for Visit 225.0 - BENIGN NEOPLASM Problem List No data available for this section Allergies, Adverse Reactions, Alerts No data available for this section Medications No data available for this section Medications Administered During Your Visit No data available for this section Immunizations No data available for this section
--- OUTSIDE RECORDS SUMMARY | 2019-05-28 05:54 | XMS REPORT | Summary of Care ---
Author Author [facility] Organization [facility] Address Unknown Phone Unavailable Encounter TRE Ott(BERTHA) [id number] Date(s): 03/26/19 - 03/26/19 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 Allergies, Adverse Reactions, Alerts No Known Medication Allergies Medications No data available for this section Results No data available for this section Immunizations No data available for this section Procedures No data available for this section Social History Social History Type Response Smoking Status Previous treatment: None; Ready to change: No; Concerns about tobacco use in household: No; Exposure to Tobacco Smoke None; Cigarette Smoking Last 365 Days No; Reg Smoking Cessation Counseling No; Never smoker entered on: 03/11/19 Assessment and Plan No data available for this section
--- OUTSIDE RECORDS SUMMARY | 2019-05-28 05:54 | XMS REPORT ---
Author Author REINA KIDD Organization [employer] Address Unknown Phone Unavailable Care Team Providers Care Conduit Helper Name Role Phone REINA KIDD Unavailable Allergies, [...] Nov 10, 2014 Follow-Up MD WALLACE Ladd Aug 10, 2016 Follow-Up MD WALLACE Ladd March 17, 2015 Follow-Up MD [facility]ACE Ladd May 11, 2015 Follow-Up MD WALLACE Ladd Jul 05, 2016 Follow-Up MD WALLACE Ladd May 04, 2016 Mammogram Result Melisa Pedro MD [place] Jun 20, 2016 Problems Problem Type Condition ICD-9 Code Onset Dates Condition Status Assessment Body mass index (BMI) of 21.0 to 21.9 in adult Z68.21 Active Assessment Vitamin D deficiency E55.9 Active Assessment Acne vulgaris L70.0 Active Problem 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 Problem Pure hypercholesterolemia E78.0 Active Problem Chronic hepatitis B B18.1 Active Assessment Pure hypercholesterolemia E78.0 Active Assessment Anemia due to chronic blood loss D50.0 Active Assessment Brain tumor D49.6 Active Assessment Chronic hepatitis B B18.1 Active Medications Medication Code System Code Instructions Start Date End Date Status Dosage [facility]ac [facility] [address]-10 0.05 % Externally Once a day Aug 10, 2016 Nov 08, 2016 Active 1 application to affected area in the evening Ferralet 90 [facility] [address]-00 90-1 MG Orally Once a day Active 1 tablet Viread [facility] [address]-14 300 MG Orally Once a day Active 1 tablet SulfaCleanse 8/4 [facility] [address]-14 8-4 % Externally Twice a day Aug 10, 2016 Nov 08, 2016 Active apply to affected area Pravastatin Sodium [facility] 32496116228 20MG Orally Once a day Active 1 tablet Duraflu [facility] [address]-35 33-07-123-500 MG Active take one tablet by mouth as needed 4 times daily for 15 days Social History Social History Element Qualifiers Date Reported drug use . no Aug 10, 2016 Tobacco Use: . Are you a: nonsmoker Aug 10, 2016 Pets: . NO Aug 10, 2016 Marital Status: . Aug 10, 2016 Caffeine: . NO Aug 10, 2016 Alcohol: . no Aug 10, 2016 Family history Qualifier Description Comment Date Reported Maternal Grandmother Comment not available Aug [...] Other: Comment not available Aug 10, 2016 Vital Signs Date/Time: Aug 10, 2016 Weight 118 lbs Height 62 in Cardiac Monitoring Heart Rate 69 /min Blood Pressure Diastolic 73 mm Hg Blood Pressure Systolic 122 mm Hg Summary Purpose [employer] Submission
--- OUTSIDE RECORDS SUMMARY | 2019-05-28 05:54 | XMS REPORT ---
Author Author REINA KIDD Organization [employer] Address Unknown Phone Unavailable Care Team Providers Care Vibrator Equipment Tester Name Role Phone REINA KIDD CP Unavailable Encounters Encounter Location Date Mammogram Melisa Pedro MD PA Jun 17, 2015 Follow-Up Melisa Pedro MD PA Aug 21, 2015 Urine Culture Melisa Pedro MD PA Sep 01, 2015 Drug Reaction Melisa Pedro MD PA Sep 01, 2015 Follow-Up MD WALLACE Ldad Nov 10, 2014 Follow-Up Melisa Pedro MD PA Aug 10, 2016 Follow-Up MD WALLACE Ladd March 17, 2015 MRI Result Melisa Pedro MD PA Aug 30, 2016 Follow-Up Melisa Pedro MD PA May 11, 2015 Follow-Up Melisa Pedro MD PA Jul 05, 2016 Follow-Up Melisa Pedro MD PA May 04, [...] 2016 Alcohol: . no Aug 10, 2016 Summary Purpose [employer] Submission
--- OUTSIDE RECORDS SUMMARY | 2019-05-28 05:54 | XMS REPORT | Summary of Care ---
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 Allergies, Adverse Reactions, Alerts Substance Reaction Severity Status NKDA1 Active 1Data migrated from [facility] on 11/25/15. Originally documented as NKA. Medications No data available for this section Results No data available for this section Immunizations No data available for this section Procedures No data available for this section Social History No data available for this section Assessment and Plan No data available for this section
--- OUTSIDE RECORDS SUMMARY | 2019-05-28 05:54 | XMS REPORT | Summary of Care ---
Author Author [facility] Organization [facility] Address Unknown Phone Unavailable Encounter TRE Ott(FIN) [id number] Date(s): 03/11/19 - 03/12/19 [place] [address] [place] [address]- Encounter Diagnosis Weakness (Discharge Diagnosis) - 03/12/19 Dysuria (Discharge Diagnosis) - 03/12/19 SOB (shortness of breath) (Discharge Diagnosis) - 03/12/19 Anemia (Discharge Diagnosis) - 03/12/19 Discharge Disposition: Home or Self Care Attending Physician: Leonardo Baxter MD Vital Signs 1 2 3 Most recent to oldest [Reference Range]: 152.4 cm (03/11/19 9:26 PM) Height 98.7 DegF (03/12/19 2:22 AM) 99.3 DegF *HI* (03/11/19 11:50 PM) 99.8 DegF *HI* (03/11/19 9:26 PM) Temperature Oral [96.4-99.1 DegF] 125/80 mmHg (03/12/19 2:22 AM) 123/84 mmHg (03/12/19 1:04 AM) 125/83 mmHg (03/11/19 11:50 PM) Blood Pressure [90-140/60-90 mmHg] 20 BRMIN (03/12/19 2:22 AM) 20 BRMIN (03/12/19 1:04 AM) 20 BRMIN (03/11/19 11:50 PM) Respiratory Rate [14-20 BRMIN] 90 bpm (03/12/19 2:22 AM) 92 bpm (03/12/19 1:04 AM) 93 bpm (03/11/19 11:50 PM) Peripheral Pulse Rate [60-100 bpm] 53.636 kg (03/11/19 9:26 PM) Weight 23.09 m2 (03/11/19 9:26 PM) Body Mass Index Problem List Condition Effective Dates Status Health Status Informant 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 on 05/26/15. Allergies, Adverse Reactions, Alerts No Known Medication Allergies Medications NS (Bolus) IV 1,000 mL, 1,000 ml/hr, Infuse Over: 1 hr, Route: IV, 1,000, Drug form: INJ, ONCE , Priority: STAT, Dosing Weight 53.636 kg, Start date: 03/12/19 0:09:00 CDT, Sto p date: 03/12/19 0:09:00 CDT Start Date: 03/12/19 Stop Date: 03/12/19 Status: Completed Omnipaque 300 injectable solution 100 mL, Route: IVP, Drug Form: SOLN, Dosing Weight 53.636, kg, ONCALL, GFR > 45 mL/min, STAT, Start date: 03/12/19 0:40:00 CDT, Duration: 1 doses or times Notes: (Same as:Omnipaque 300).WASTE: F/P - Black; E - Municipal Trash Bin Start Date: 03/12/19 Stop Date: 03/12/19 Status: Completed Saline Flush 0.9% 10 mL, Route: IVP, Drug Form: INJ, Dosing Weight 53.636, kg, PRN, PRN Line Flush , Start date: 03/11/19 21:33:00 CDT, Duration: 30 day, Stop date: 04/10/19 21:32 :00 CDT Notes: Same as: BD Posiflush Sterile Start Date: 03/11/19 Stop Date: 03/12/19 Status: Discontinued Results Most recent to 1 oldest [Reference Range]: Neutrophils # 8.8 K/CMM [1.5-8.1 K/CMM] *HI* (03/11/19 10:12 PM) Lymphocytes # 1.0 K/CMM [1.0-5.5 K/CMM] (03/11/19 10:12 PM) Monocytes # [0.0-0.8 0.6 K/CMM K/CMM] (03/11/19 10:12 PM) Eosinophils # 0.3 K/CMM [0.0-0.5 K/CMM] (03/11/19 10:12 PM) Basophils # [0.0-0.2 0.0 K/CMM K/CMM] (03/11/19 10:12 PM) BNP [<=100 pg/mL] 17 pg/mL (03/11/19 10:12 PM) eGFR 102 mL/min/1.73m2 1 *NA* (03/11/1912 PM) A/G Ratio [0.7-1.6] 0.9 (03/11/19 10:12 PM) Albumin Lvl [3.5-5.0 3.9 g/dL g/dL] (03/11/19 1012 PM) Alk Phos [39-136 101 unit/L unit/L] (03/11/19 10:12 PM) ALT [0-65 unit/L] 28 unit/L (03/11/19 1012 PM) AGAP [10.0-20.0 12.7 mEq/L mEq/L] (03/11/19 10:12 PM) AST [0-37 unit/L] 16 unit/L (03/11/19 10:12 PM) B/C Ratio [6-25] 24 (03/11/19 10:12 PM) Basophils [0.0-1.0 0.2 % %] (03/11/19 10:12 PM) BUN [7-22 mg/dL] 17 mg/dL (03/11/19 1012 PM) Calcium Lvl 8.5 mg/dL [8.5-10.5 mg/dL] (03/11/19 10:12 PM) Total CK [12-191 152 unit/L unit/L] (03/11/19 10:12 PM) Chloride Lvl [95-109 104 mEq/L mEq/L] (03/11/19 10:12 PM) CO2 [24-32 mEq/L] 24 mEq/L (03/11/19 10:12 PM) Creatinine Lvl 0.70 mg/dL [0.50-1.40 mg/dL] (03/11/19 10:12 PM) D-Dimer 0.27 ug/mL FEU *NA* (03/11/19 10:12 PM) Eosinophils [0.0-4.0 3.0 % %] (03/11/19 10:12 PM) Globulin [2.7-4.2 4.4 g/dL g/dL] *HI* (03/11/19 10:12 PM) Glucose Lvl [70-99 106 mg/dL mg/dL] *HI* (03/11/19 10:12 PM) Hct [36.0-48.0 %] 30.3 % *LOW* (03/11/19:12 PM) Hgb [12.0-16.0 g/dL] 9.4 g/dL *LOW* (03/11/19: PM) Potassium Lvl 3.7 mEq/L [3.5-5.1 mEq/L] (03/11/19:12 PM) Lymphocytes 9.1 % [20.0-40.0 %] *LOW* (03/11/19:12 PM) MCH [27.0-31.0 pg] 23.1 pg *LOW* (03/11/19 10:12 PM) MCHC [32.0-36.0 31.2 g/dL g/dL] *LOW* (03/11/19:12 PM) MCV [80.0-98.0 fL] 74.0 fL *LOW* (03/11/19 10:12 PM) Magnesium Lvl 2.4 mg/dL [1.8-2.4 mg/dL] (03/11/19 10:12 PM) Monocytes [2.0-12.0 5.3 % %] (03/11/19 10:12 PM) MPV [7.4-10.4 fL] 8.2 fL (03/11/19 10:12 PM) Sodium Lvl [135-145 137 mEq/L mEq/L] (03/11/19:12 PM) Phosphorus [2.5-4.5 2.7 mg/dL mg/dL] (03/11/19 10:12 PM) Platelet [133-450 349 K/CMM K/CMM] (03/11/19 10:12 PM) Segs [45.0-75.0 %] 82.4 % *HI* (03/11/19 10:12 PM) Total Protein 8.3 g/dL [6.4-8.4 g/dL] (03/11/19 10:12 PM) RBC [4.20-5.40 4.09 M/CMM M/CMM] *LOW* (03/11/19 10:12 PM) RDW [11.5-14.5 %] 17.6 % *HI* (03/11/19 10:12 PM) S Preg [Negative] Negative *NA* (03/12/19 12:00 AM) Bili Total [0.2-1.3 0.3 mg/dL mg/dL] (03/11/19 10:12 PM) Troponin-I <0.02 ng/mL [0.00-0.40 ng/mL] (03/11/19 10:12 PM) UA Bacteria [None Occasional /HPF Seen /HPF] *NA* (03/11/19 10:12 PM) UA Bili [Negative] Negative *NA* (03/11/19 10:12 PM) UA Blood [Negative] Small *ABN* (03/11/19 10:12 PM) UA Color Luz *NA* (03/11/19 10:12 PM) UA Glucose [Negative Negative mg/dL mg/dL] *NA* (03/11/19 10:12 PM) UA Ketones [Negative Negative mg/dL mg/dL] *NA* (03/11/19 10:12 PM) UA Leuk Est Negative [Negative] (03/11/19 10:12 PM) UA Nitrite Positive [Negative] *ABN* (03/11/19 10:12 PM) UA pH [5.0-8.0] 8.0 (03/11/19 10:12 PM) UA Protein [Negative Negative mg/dL mg/dL] (03/11/19 10:12 PM) UA RBC [0-2 /HPF] 1 /HPF (03/11/19 10:12 PM) UA Spec Grav 1.009 [<=1.030] (03/11/19 10:12 PM) UA Sq Epi None Seen *NA* (03/11/19 10:12 PM) UA Turbidity [Clear] Clear (03/11/19 10:12 PM) UA Urobilinogen 4.0 mg/dL [0.1-1.0 mg/dL] *HI* (03/11/19 10:12 PM) UA WBC [0-5 /HPF] 3 /HPF (03/11/19 10:12 PM) WBC [3.7-10.4 K/CMM] 10.7 K/CMM *HI* (03/11/19 10:12 PM) 1Result Comment: The eGFR is calculated using the [...] from the National Kidney Disease Education Program ( NKDEP) which additionally recommends that when the eGFR is used in patients with extremes of body mass index for purposes of drug dosing, the eGFR should be mul tiplied by the estimated BMI. Immunizations No data available for this section [...]
[2019-05-28 10:45] VITALS: BP 136/92
== END | disposition home or self-care (01) ==
LOC: OR 05:49
PROVIDERS: ATTEND Internal Medicine Gastroenterology
DX: D64.9 Anemia, unspecified (principal); D12.2 Benign neoplasm of ascending colon; D12.4 Benign neoplasm of descending colon; K29.50 Unspecified chronic gastritis without bleeding; K29.80 Duodenitis without bleeding; K31.89 Other diseases of stomach and duodenum; K57.30 Diverticulosis of large intestine without perforation or abscess without bleeding; K44.9 Diaphragmatic hernia without obstruction or gangrene; K64.8 Other hemorrhoids; E78.5 Hyperlipidemia, unspecified; N39.0 Urinary tract infection, site not specified; B19.10 Unspecified viral hepatitis B without hepatic coma; R91.1 Solitary pulmonary nodule; Z01.810 Encounter for preprocedural cardiovascular examination; Z01.812 Encounter for preprocedural laboratory examination; Z86.19 Personal history of other infectious and parasitic diseases; Z80.0 Family history of malignant neoplasm of digestive organs
CPT/HCPCS: 36415; 43239; 45384; 80053; 81025; 85025; 85610; 85730; 93005; J1610; J2250; J2704; J3010; 45378